=== PATIENT | male | born 1980 | race Hispanic/Latino ===

== ENCOUNTER 2017-04-25 21:51 | Emergency (ER) | payer OTHER ==
[2017-04-26] MEDS ORDERED: Haloperidol 5 MG TAB PO SCH (03:30)
[2017-04-26 04:23] LABS: #Monocytes 0.9 thou/uL (0.11-0.59); #Neutrophils 5.8 thou/uL (1.40-6.50); %Basophils 0.3 % (0.0-1.0); %Eosinophils 0.4 % (0.0-10.0); %Lymphocytes 22.6 % (21.0-51.0); %Monocytes 10.5 % (0.0-10.0); %Neutrophils 66.1 % (42.0-75.0); Hemoglobin 12.9 g/dL (14.0-18.0); Mean Corpuscular HGB CONC 35.9 g/dL (32.0-36.0); Mean Corpuscular Hemoglobin 31.3 pg (27.0-31.0); Mean Corpuscular Volume 87.3 fl (80.0-94.0); Mean Platelet Volume 5.8 fL (7.4-10.4); Platelet Count 347 thou/uL (130-400); RBC Distribution Width 11.1 % (11.5-14.5); Red Blood Cell (RBC) Count 4.11 mill/uL (4.70-6.10); White Blood Cell (WBC) Count 8.8 thou/uL (4.8-10.8)
[2017-04-26 04:36] LABS: Bilirubin Negative (Negative); Blood, Urine Negative (Negative); Clarity CLEAR (Clear); Glucose, Urine (Dipstick) Negative (Negative); Leukocyte Negative (Negative); Nitrite Negative (Negative); Protein, Urine (Dipstick) Negative (Neg-Trace); Specific Gravity, Urine 1.004 (1.002-1.036); Urobilinogen 0.2 mg/dL (0.2-1.0)
[2017-04-26 04:43] LABS: Amphetamine Not Detected (NotDetected); Barbiturates Screen Not Detected (NotDetected); Benzodiazepine Screen Not Detected (NotDetected); Cocaine Metabolite Screen Not Detected (NotDetected); Medtox Control Line Valid? VALID (VALID); Medtox Reader # READER 4; Methadone Not Detected (NotDetected); Methamphetamine Not Detected (NotDetected); Opiate Screen Not Detected (NotDetected); Oxycodone Screen Not Detected (NotDetected); Phencyclidine (PCP) Not Detected (NotDetected); THC/Cannabinoid Screen Not Detected (NotDetected); Tricyclic Screen Not Detected (NotDetected)
[2017-04-26 04:54] LABS: ALT (SGPT) 40 U/L (8-55); AST (SGOT) 41 U/L (5-34); Acetaminophen Less than 6.0 mcg/mL (10.0-30.0); Albumin 4.3 g/dL (3.5-5.0); Alcohol Less than 10 mg/dL (Less than 10); Alkaline Phosphatase 59 U/L (40-150); Anion Gap 12 mmol/L (10-20); BUN (Urea Nitrogen) 4 mg/dL (8.9-20.6); Bilirubin, Total 0.8 mg/dL (0.2-1.2); Calc. Creatinine Clearance 0 mL/min (70-130); Calcium 9.6 mg/dL (7.8-10.44); Carbon Dioxide 26 mmol/L (22-29); Chloride 98 mmol/L (98-107); Estimated GFR-MDRD Greater than 90; Globulin 2.4 g/dL (2.4-3.5); Glucose 103 mg/dL (70-105); Potassium 3.4 mmol/L (3.5-5.1); Protein, Total 6.7 g/dL (6.0-8.3); Salicylate Less than 8.0 mg/dL (15.0-30.0); Sodium 133 mmol/L (136-145)
--- NOTE | 2017-05-13 17:49 | EKG ---
Test Reason : PSYCH EVAL Blood Pressure : / mmHG Vent. Rate : 117 BPM Atrial Rate : 117 BPM P-R Int : 140 ms QRS Dur : 090 ms QT Int : 320 ms P-R-T Axes : 049 018 024 degrees QTc Int : 446 ms Sinus tachycardia Otherwise normal ECG Confirmed by HAKEEM KONG D.O. ([id number]), makeup editor GUY HERNANDEZ ([id number]) on 05/13/2017 5:47:59 PM Referred By: LIZ KONG Confirmed By:HAKEEM KONG D.O.
== END 2017-04-26 06:46 | disposition home or self-care (01) ==
LOC: ERS 21:51
DX: F31.9 Bipolar disorder, unspecified (principal); I10 Essential (primary) hypertension; E78.5 Hyperlipidemia, unspecified; Z79.899 Other long term (current) drug therapy
CPT/HCPCS: 36415; 80053; 80306; 80307; 81003; 84443; 85025; 93005

== ENCOUNTER 2017-04-30 15:55 | Observation (INO) | payer OTHER ==
[2017-04-30 16:29] LABS: Bilirubin Negative (Negative); Blood, Urine Negative (Negative); Clarity CLEAR (Clear); Glucose, Urine (Dipstick) Negative (Negative); Leukocyte Negative (Negative); Nitrite Negative (Negative); Protein, Urine (Dipstick) Negative (Neg-Trace); Specific Gravity, Urine 1.004 (1.002-1.036); Urobilinogen 0.2 mg/dL (0.2-1.0); pH, Urine 6.5 (5.0-9.0)
[2017-04-30 16:32] LABS: #Eosinphils 0.1 thou/uL (0.0-0.7); #Monocytes 1.1 thou/uL (0.11-0.59); #Neutrophils 10.4 thou/uL (1.40-6.50); %Basophils 0.3 % (0.0-1.0); %Eosinophils 0.6 % (0.0-10.0); %Lymphocytes 14.9 % (21.0-51.0); %Monocytes 7.7 % (0.0-10.0); %Neutrophils 76.5 % (42.0-75.0); Hemoglobin 12.9 g/dL (14.0-18.0); Mean Corpuscular HGB CONC 35.3 g/dL (32.0-36.0); Mean Corpuscular Hemoglobin 31.1 pg (27.0-31.0); Mean Platelet Volume 6.1 fL (7.4-10.4); Platelet Count 280 thou/uL (130-400); RBC Distribution Width 11.4 % (11.5-14.5); Red Blood Cell (RBC) Count 4.16 mill/uL (4.70-6.10); White Blood Cell (WBC) Count 13.6 thou/uL (4.8-10.8)
[2017-04-30 16:35] LABS: Amphetamine Not Detected (NotDetected); Barbiturates Screen Not Detected (NotDetected); Benzodiazepine Screen Not Detected (NotDetected); Cocaine Metabolite Screen Not Detected (NotDetected); Medtox Control Line Valid? VALID (VALID); Medtox Reader # READER 4; Methadone Not Detected (NotDetected); Methamphetamine Not Detected (NotDetected); Opiate Screen Not Detected (NotDetected); Oxycodone Screen Not Detected (NotDetected); Phencyclidine (PCP) Not Detected (NotDetected); THC/Cannabinoid Screen Not Detected (NotDetected); Tricyclic Screen Not Detected (NotDetected)
[2017-04-30 16:55] LABS: Acetaminophen Less than 6.0 mcg/mL (10.0-30.0); Alcohol Less than 10 mg/dL (Less than 10); Salicylate Less than 8.0 mg/dL (15.0-30.0)
[2017-04-30 16:56] LABS: ALT (SGPT) 47 U/L (8-55); AST (SGOT) 37 U/L (5-34); Albumin 4.2 g/dL (3.5-5.0); Alkaline Phosphatase 60 U/L (40-150); Anion Gap 16 mmol/L (10-20); BUN (Urea Nitrogen) 5 mg/dL (8.9-20.6); Bilirubin, Total 0.8 mg/dL (0.2-1.2); Calc. Creatinine Clearance 0 mL/min (70-130); Calcium 8.9 mg/dL (7.8-10.44); Carbon Dioxide 21 mmol/L (22-29); Chloride 92 mmol/L (98-107); Estimated GFR-MDRD Greater than 90; Globulin 2.6 g/dL (2.4-3.5); Glucose 97 mg/dL (70-105); Protein, Total 6.8 g/dL (6.0-8.3); Sodium 126 mmol/L (136-145)
[2017-04-30 17:04] LABS: Potassium 2.8 mmol/L (3.5-5.1)
[2017-04-30] MEDS ORDERED: Potassium Chloride 20 MEQ TAB ONE (17:07)
[2017-04-30] MEDS ORDERED: Metoprolol Tartrate 5 MG/5 ML VIAL IVP PRN (18:49)
[2017-04-30] MEDS ORDERED: Ziprasidone 20 MG VIAL IM PRN (18:50)
[2017-04-30] MEDS ORDERED: Sterile Water 10 ML VIAL FS PRN (18:55)
--- NOTE | 2017-04-30 19:34 | RAD ---
CHEST ONE VIEW: History: Emergency exam. Comparison: 03-17-05 FINDINGS: Lungs are hypoinflated. No focal airspace consolidation, pneumothorax, or effusion. Cardiomediastinal silhouette and mediastinal contours are normal for technique. IMPRESSION: No intrathoracic abnormality. POS: [facility]
--- NOTE | 2017-04-30 20:17 | HP ---
CHIEF COMPLAINT: Altered mental status. HISTORY OF PRESENT ILLNESS: This is a 36-year-old young white male with a known history of recurrent admissions to the hospital for hyponatremia. The patient was in his usual state of health until this morning at around 11:00 a.m. His mother call ed her that the patient was confused and was switching all the lights on and off and was wand ering around the abreu. This patient had similar symptoms whenever his sodium levels goes down and rae s been drinking water out of the tap. He usually does this whenever his psychiatric condition comes on. The patient is on Abilify and lamotrigine for his psychiatric problems. He came to the ER and w as noted to have a sodium level of 126 with a potassium of 2.8. He is pretty confused and unable to get any history at this time and most of the history is obtained from his dad. The patient sees [facility] as a psychiatry and do not have any specific psychiatrist. The patient was noted to have a severe t achycardia in the 140s, but there was no evidence of any swelling of his lower extremities and there is no hypoxia to see if this was related to the pulmonary embolism. He denied having any chest pain, no nausea, no vomiting. The patient was actually trying to get up from the bed and falling back. H e denied having any symptoms of agitation. There is no evidence of any aggressive behavior from the patient, but he does have manic symptoms of hypervigilance. PAST MEDICAL HISTORY: Significant for bipolar disorder. PAST SURGICAL HISTORY: None. SOCIAL HISTORY: He lives with his mother and is a nonsmoker. No history of alcohol. No history of illicit drug use. FAMILY HISTORY: Unknown at this time. MEDICATIONS: 1. Lisinopril 5 mg daily. 2. Abilify 10 mg p.o. at bedtime. 3. Cholecalciferol 2000 units p.o. daily. 4. Lamotrigine 100 mg p.o. at bedtime. ALLERGIES: No known drug allergies. REVIEW OF SYSTEMS: Unable to obtain any review of systems at this time. PHYSICAL EXAMINATION: VITAL SIGNS: Blood pressures are 143/88, heart rate is 140, respiratory rate is 18 and saturations a re 98% on room air. GENERAL: The patient is moderately built and moderately nourished. He does not appear to be in any acute distress at this time, alert and disoriented. HEENT: Atraumatic and normocephalic. PERRLA. Extraocular movements were intact. Oral mucosa is pi nk and moist. CARDIOVASCULAR: S1 and S2 normal. No murmurs, rubs or gallops. LUNGS: Bilateral air entry was equal. No wheezing, no crackles. ABDOMEN: Soft, distended and nontender. No guarding, no rebound tenderness. Bowel sounds normal. MUSCULOSKELETAL: No calf tenderness. No pedal edema. No joint tenderness, no joint swelling. SKIN: No cyanosis, no erythema, no rash, no pallor. CENTRAL NERVOUS SYSTEM: Could not be done as the patient is not following any commands and has compl etely altered. NECK: No thyromegaly. No JVD was noted. LYMPHADENOPATHY: No evidence of lymph nodes were noted. PSYCHIATRIC: Patient has signs of estrellita with hypervigilance, but no agitation or no violent behavior at this time. LABORATORY DATA: WBC is 13.6, hemoglobin is 12.9, hematocrit is 36.6, platelets are 280 and neutroph ils 76.5. Sodium is 126, potassium is 2.8, chloride is 98, BUN is 5, creatinine is 0.81. AST is 37. UA was ne gative for any urinary tract infection. Urine toxicology was negative. IMAGING DATA: Chest x-ray was done showing no evidence of any acute infiltrates were noted. ASSESSMENT: 1. Acute hyponatremia. 2. Acute psychogenic polydipsia. 3. Acute hypokalemia. 4. History of bipolar disorder, poorly controlled. 5. Sinus tachycardia. 6. Uncontrolled hypertension. PLAN: 1. Plan is to admit this patient and correct his hyponatremia as the patient could develop cerebral edema. He has low sodium levels. At this time, we will check the urine sodium and urine osmolality to rule out any evidence of syndrome of inappropriate antidiuretic hormone secretion, but clearly fro m his history, it is evident that the patient has a psychogenic polydipsia secondary to poor control of his psychiatric disorder. Patient has been drinking water out of the tap. We will do a free wate r restriction for 750 mL in 24 hours. 2. We will start the patient on normal saline at 75 mL an hour and we will start the patient on Las ix at 40 mg IV b.i.d. as the patient has a clear evidence of volume overload with free water volume o verload. The Lasix is to get the free water out. We will supplement potassium of 20 mg p.o. b.i.d. as long as the patient is on the Lasix. 3. We will hold off on the lisinopril at this time as this has also potential to cause hyponatremia. 4. Patient has severe sinus tachycardia. The patient did not have any evidence of pulmonary embolis m, but will do a D-dimer as a pretest probability is very less for a pulmonary embolism. 5. We will treat the sinus tachycardia with metoprolol 5 mg IV q.6 hours p.r.n. for heart rate more than 120. 6. Hypertension is poorly controlled, likely from his manic episode. We will control his hypertensi on with hydralazine 10 mg IV q.6 hours p.r.n. 7. Poorly controlled bipolar disorder. We will do a Geodon as needed for any agitation, but otherwi se we will restart the patient's home medications. The patient needs to be followed up with [facility] and needs to be admitted inpatient once the patient is medically cleared. 8. Deep venous thrombosis prophylaxis, Lovenox. I spent 70 minutes with this patient.
[2017-04-30] MEDS ORDERED: Metoprolol Tartrate 5 MG/5 ML VIAL ONE (20:45)
[2017-04-30] MEDS ORDERED: lamoTRIgine 100 MG TAB PO SCH (21:00)
[2017-04-30] MEDS ORDERED: Aripiprazole 10 MG TAB PO SCH (21:00)
[2017-04-30] MEDS ORDERED: Ondansetron ODT 4 MG TAB SL PRN (21:47)
[2017-04-30] MEDS ORDERED: Acetaminophen 325 MG TAB PO PRN (21:47)
[2017-04-30] MEDS ORDERED: Ondansetron HCl/PF 4 MG/2 ML Vial IVP PRN ×2 (21:47→21:49)
[2017-04-30] MEDS ORDERED: HYDROcodone/Acetaminophen 5/325 mg Tablet PO PRN (21:49)
[2017-04-30] MEDS ORDERED: Famotidine/PF 20 mg/2ml Vial SLOW IVP SCH (22:00)
[2017-04-30] MEDS ORDERED: Docusate 100 MG CAP PO SCH (22:00)
[2017-04-30] MEDS: Sodium Chloride 0.9% 1,000 ML IV SCH (22:06)
[2017-05-01 00:12] VITALS: BMI 35.4
[2017-05-01 05:17] LABS: #Eosinphils 0.1 thou/uL (0.0-0.7); #Lymphocytes 1.8 thou/uL (1.20-3.40); #Neutrophils 5.2 thou/uL (1.40-6.50); %Basophils 0.6 % (0.0-1.0); %Eosinophils 0.8 % (0.0-10.0); %Lymphocytes 22.6 % (21.0-51.0); %Monocytes 11.8 % (0.0-10.0); %Neutrophils 64.2 % (42.0-75.0); Hemoglobin 13.3 g/dL (14.0-18.0); Mean Corpuscular HGB CONC 36.2 g/dL (32.0-36.0); Mean Corpuscular Hemoglobin 32.2 pg (27.0-31.0); Mean Corpuscular Volume 88.9 fl (80.0-94.0); Mean Platelet Volume 6.5 fL (7.4-10.4); Platelet Count 297 thou/uL (130-400); RBC Distribution Width 11.6 % (11.5-14.5); Red Blood Cell (RBC) Count 4.13 mill/uL (4.70-6.10); White Blood Cell (WBC) Count 8.1 thou/uL (4.8-10.8)
[2017-05-01 05:37] LABS: Anion Gap 10 mmol/L (10-20); BUN (Urea Nitrogen) 4 mg/dL (8.9-20.6); Calc. Creatinine Clearance 162 mL/min (70-130); Calcium 9.6 mg/dL (7.8-10.44); Carbon Dioxide 24 mmol/L (22-29); Chloride 109 mmol/L (98-107); Estimated GFR-MDRD Greater than 90; Glucose 93 mg/dL (70-105); Potassium 4.4 mmol/L (3.5-5.1); Sodium 139 mmol/L (136-145)
[2017-05-01] MEDS ORDERED: Furosemide 40 MG/4 ML VIAL SLOW IVP SCH (06:00)
[2017-05-01] MEDS ORDERED: Famotidine/PF 20 mg/2ml Vial SLOW IVP SCH (09:00)
[2017-05-01] MEDS ORDERED: Docusate 100 MG CAP PO SCH (09:00)
[2017-05-01] MEDS ORDERED: Enoxaparin Sodium 40 MG/0.4 ML SYRINGE SC SCH (09:00)
[2017-05-01] MEDS: Potassium Chloride 20 MEQ TAB PO SCH ×2 (09:24→17:30)
[2017-05-01] MEDS: Sodium Chloride 0.9% 1,000 ML IV SCH (09:25)
--- NOTE | 2017-05-01 15:33 | DIS ---
DATE OF ADMISSION: 04/30/2017 DATE OF DISCHARGE: 05/01/2017 ADMITTING DIAGNOSIS: Acute metabolic encephalopathy. DISCHARGE DIAGNOSIS: Acute metabolic encephalopathy. SECONDARY DIAGNOSES: 1. Acute hyponatremia. 2. Acute hypokalemia. 3. Acute psychogenic polydipsia. 4. History of bipolar disorder. HISTORY OF PRESENT ILLNESS AND HOSPITAL COURSE: In brief, this is a 36-year-old young white male wit h a known history of recurrent admissions for hyponatremia secondary to poorly controlled bipolar dis order, on antipsychotic medications. The patient has been developing psychogenic polydipsia and drin presley cool water from the tap. The patient was in his usual state of health today. At 11:00 a.m., th e mother noted that the patient was confused and was switching the lights on and off and was wanderin g in the halls. So, she called the EMS and the patient was taken to the ER and was noted to have a l ow sodium of 126 and low potassium of 2.8. The patient was completely confused and disoriented. Gena suárez's CT head was done and was negative and drug screen was negative. Discussed with the patient's dad that the patient would probably need to be treated at a psych facility for his bipolar disorder. The patient was admitted and started on normal saline at 75 mL an hour and also started on Lasix to get the free water out. The following morning, the patient's labs improved. His orientation has com pletely changed. He is completely back to normal and [facility] did evaluate him and they thought the fareed ent is not appropriate for inpatient psych. So, they gave an outpatient psych appointment to go over his psych medications. Patient is discharged home in stable condition after he is medically cleared . PHYSICAL EXAMINATION: VITAL SIGNS: Blood pressure is 118/74, heart rate is 80, respiratory rate 17, saturation 96%. GENERAL: The patient is moderately built and moderately nourished, does not appear to be in any acut e distress. He is alert and oriented x3. HEENT: Atraumatic, normocephalic. CARDIOVASCULAR: S1, S2 normal. No murmurs, no rubs, no gallops. LUNGS: Bilateral air entry was equal. No wheezing, no crackles. ABDOMEN: Soft, nontender, no guarding, no rebound tenderness. HOME MEDICATIONS: Lisinopril 5 mg p.o. daily, aripiprazole 10 mg p.o. at bedtime, and lamotrigine 10 0 mg p.o. at bedtime. DISCHARGE INSTRUCTIONS: Continue activity as tolerated. Advised to follow up with psychiatry outpat ient as suggested by [facility]. Advised to avoid drinking excess free water more than 1500 mL a day. DIET: Continue with the general diet. The patient is discharged home. I spent 30 minutes with this patient.
[2017-05-01 16:04] VITALS: TEMP 98.3
[2017-05-01 18:40] VITALS: BP 140/71
[2017-05-02] MEDS ORDERED: Lisinopril 5 MG TAB PO SCH (09:00)
== END 2017-05-01 18:41 | disposition home or self-care (01) ==
LOC: ERS 15:55 → 2NO 21:48
PROVIDERS: ADMIT Family Medicine; ATTEND Family Medicine
DX: G93.41 Metabolic encephalopathy (principal); E87.1 Hypo-osmolality and hyponatremia; E87.6 Hypokalemia; F31.9 Bipolar disorder, unspecified; I10 Essential (primary) hypertension; E78.5 Hyperlipidemia, unspecified; E78.00 Pure hypercholesterolemia, unspecified; F45.8 Other somatoform disorders; R63.1 Polydipsia; R73.03 Prediabetes; R00.0 Tachycardia, unspecified; Z79.899 Other long term (current) drug therapy; Z90.49 Acquired absence of other specified parts of digestive tract
CPT/HCPCS: 36415; 71045; 80048; 80053; 80306; 80307; 81003; 85025; 85379; 93005; 94760; 96361; 96372; 96374; 96375; 96376; A4216; G0378; J1650; J1940; S0028

== ENCOUNTER 2017-08-17 00:12 | Emergency (ER) | payer OTHER ==
[2017-08-17] MEDS ORDERED: Lorazepam 2 MG/ML VIAL ONE (00:30)
[2017-08-17] MEDS ORDERED: Haloperidol Lactate 5 MG/ML VIAL ONE (00:30)
== END 2017-08-17 02:18 | disposition home or self-care (01) ==
LOC: ERS 00:12
DX: F41.9 Anxiety disorder, unspecified (principal); E78.5 Hyperlipidemia, unspecified; I10 Essential (primary) hypertension; F31.9 Bipolar disorder, unspecified; Z79.899 Other long term (current) drug therapy
CPT/HCPCS: 96372; J1630; J2060

== ENCOUNTER 2017-09-04 17:00 | Emergency (ER) | payer OTHER ==
[2017-09-04] MEDS ORDERED: diphenhydrAMINE 25 MG CAP ONE (18:24)
[2017-09-04] MEDS ORDERED: Haloperidol Lactate 5 MG/ML VIAL ONE (18:24)
== END 2017-09-04 19:03 | disposition home or self-care (01) ==
LOC: ERS 17:00
DX: F41.9 Anxiety disorder, unspecified (principal); F30.9 Manic episode, unspecified; E87.5 Hyperkalemia; I10 Essential (primary) hypertension; R73.03 Prediabetes; F31.9 Bipolar disorder, unspecified; F20.9 Schizophrenia, unspecified
CPT/HCPCS: 96372; J1630

== ENCOUNTER 2017-09-09 21:52 | Inpatient (IN) | payer OTHER ==
[2017-09-09 23:39] LABS: #Eosinphils 0.1 thou/uL (0.0-0.7); #Monocytes 1.2 thou/uL (0.11-0.59); #Neutrophils 10.5 thou/uL (1.40-6.50); %Basophils 0.1 % (0.0-1.0); %Lymphocytes 14.7 % (21.0-51.0); %Monocytes 8.9 % (0.0-10.0); %Neutrophils 75.3 % (42.0-75.0); Hemoglobin 12.3 g/dL (14.0-18.0); Mean Corpuscular HGB CONC 36.3 g/dL (32.0-36.0); Mean Corpuscular Volume 85.4 fl (80.0-94.0); Mean Platelet Volume 6.4 fL (7.4-10.4); Platelet Count 235 thou/uL (130-400); RBC Distribution Width 10.7 % (11.5-14.5); Red Blood Cell (RBC) Count 3.98 mill/uL (4.70-6.10); White Blood Cell (WBC) Count 13.9 thou/uL (4.8-10.8)
[2017-09-09 23:52] LABS: Acetaminophen Less than 6.0 mcg/mL (10.0-30.0); Alcohol Less than 10 mg/dL (Less than 10); CK (CPK) 2739 U/L (30-200); Salicylate Less than 8.0 mg/dL (15.0-30.0)
[2017-09-09 23:54] LABS: ALT (SGPT) 33 U/L (8-55); AST (SGOT) 51 U/L (5-34); Albumin 4.1 g/dL (3.5-5.0); Alkaline Phosphatase 58 U/L (40-150); Anion Gap 15 mmol/L (10-20); BUN (Urea Nitrogen) 4 mg/dL (8.9-20.6); Bilirubin, Total 1.2 mg/dL (0.2-1.2); Calc. Creatinine Clearance 0 mL/min (70-130); Calcium 8.7 mg/dL (7.8-10.44); Carbon Dioxide 25 mmol/L (22-29); Chloride 86 mmol/L (98-107); Estimated GFR-MDRD Greater than 90; Globulin 2.4 g/dL (2.4-3.5); Glucose 152 mg/dL (70-105); Protein, Total 6.5 g/dL (6.0-8.3); Sodium 123 mmol/L (136-145)
[2017-09-10 00:16] LABS: Potassium 2.5 mmol/L (3.5-5.1)
[2017-09-10] MEDS ORDERED: Potassium Chloride 20 MEQ TAB ONE (01:24)
[2017-09-10] MEDS ORDERED: Ziprasidone 20 MG VIAL ONE (01:24)
[2017-09-10] MEDS ORDERED: Lorazepam 1 MG TAB ONE (01:24)
[2017-09-10] MEDS ORDERED: Water For Injection,Sterile 20 ML ONE (01:25)
[2017-09-10 02:26] LABS: Bilirubin Negative (Negative); Blood, Urine Negative (Negative); Clarity CLEAR (Clear); Glucose, Urine (Dipstick) Negative (Negative); Leukocyte Negative (Negative); Nitrite Negative (Negative); Protein, Urine (Dipstick) Negative (Neg-Trace); Specific Gravity, Urine 1.002 (1.002-1.036); Urobilinogen 0.2 mg/dL (0.2-1.0); pH, Urine 7.5 (5.0-9.0)
[2017-09-10 04:05] LABS: Amphetamine Not Detected (NotDetected); Barbiturates Screen Not Detected (NotDetected); Benzodiazepine Screen Not Detected (NotDetected); Cocaine Metabolite Screen Not Detected (NotDetected); Medtox Control Line Valid? VALID (VALID); Medtox Reader # READER 1; Methadone Not Detected (NotDetected); Methamphetamine Not Detected (NotDetected); Opiate Screen Not Detected (NotDetected); Oxycodone Screen Not Detected (NotDetected); Phencyclidine (PCP) Not Detected (NotDetected); THC/Cannabinoid Screen Not Detected (NotDetected); Tricyclic Screen Not Detected (NotDetected)
[2017-09-10 04:06] VITALS: BMI 35.9
[2017-09-10 06:18] LABS: Anion Gap 12 mmol/L (10-20); BUN (Urea Nitrogen) Less than 4 mg/dL (8.9-20.6); CK (CPK) 2977 U/L (30-200); Calc. Creatinine Clearance 204 mL/min (70-130); Calcium 8.8 mg/dL (7.8-10.44); Carbon Dioxide 25 mmol/L (22-29); Chloride 96 mmol/L (98-107); Estimated GFR-MDRD Greater than 90; Glucose 80 mg/dL (70-105); Sodium 130 mmol/L (136-145)
[2017-09-10] MEDS ORDERED: Acetaminophen 325 MG TAB PO PRN (07:26)
[2017-09-10] MEDS: Potassium Chloride 20 MEQ TAB PO SCH ×2 (08:29→16:24)
[2017-09-10] MEDS: Divalproex Sodium DR 500 MG TAB PO SCH ×2 (08:29→20:30)
[2017-09-10] MEDS: Atorvastatin Calcium 20 MG TAB PO SCH (08:29)
[2017-09-10] MEDS: Magnesium Oxide 400 MG TAB PO SCH ×2 (10:05→20:30)
[2017-09-10] MEDS ORDERED: Sodium Chloride 0.9% 1,000 ML IV SCH (13:15)
[2017-09-10] MEDS: Sodium Chloride 0.9% 1,000 ML IV SCH (16:26)
--- NOTE | 2017-09-10 22:34 | HP ---
PRIMARY CARE PHYSICIAN: Dr. Mc. PRESENTING COMPLAINT: Anxiety. HISTORY OF PRESENT ILLNESS: Mr. Camden Mancilla presented to the emergency room today with reports of agitation and bizarre behavior according to family. He has been constantly drinking a lot of water and eating. His father reports that he has a history of schizophrenia bipolar disorder, as well as anxiety. Symptoms started yesterday. At the emergency room, he was found to be hyponatremic and hyperkalemic with elevated CPK. He has had a previous presentation for similar presentation. He was given a diagnosis of psychogenic polydipsia rhabdomyolysis, hyponatremia and hyperkalemia and he was admitted for further care. PAST MEDICAL HISTORY: As stated in the HPI. PAST SURGICAL HISTORY: None. FAMILY HISTORY: Reviewed and noncontributory. SOCIAL HISTORY: Denies drinking alcohol, smoking cigarettes or use of illicit drugs. HOME MEDICATIONS: Lisinopril/hydrochlorothiazide 20 mg/12.5 mg tablet 1 daily, paliperidone palmitate 150 mg subcutaneously monthly, atorvastatin 20 mg daily, divalproex sodium 500 mg b.i.d. ALLERGIES: No known. CODE STATUS: FULL. REVIEW OF SYSTEMS: All systems reviewed and negative, except as stated in HPI. PHYSICAL EXAMINATION: VITAL SIGNS: Temperature 98 degree Fahrenheit, pulse rate 70, respiratory rate 16, oxygen saturation 94% on room air, blood pressure 102/53. GENERAL: Not in acute distress, lying comfortably in bed. HEENT: Normocephalic, atraumatic. Not pale, anicteric. Moist mucous membranes. PERRLA, EOMI. NECK: Supple, full range of movement. RESPIRATORY: Vesicular breath sounds bilaterally. No wheezes, rales or rhonchi. CARDIOVASCULAR: S1, S2 only. Regular rate and rhythm. No murmurs, rubs or gallops. ABDOMEN: Soft, nontender, nondistended. Bowel sounds normoactive. No hepatosplenomegaly. EXTREMITIES: No edema. Moves all extremities spontaneously. NEUROLOGIC: Alert and well oriented to time, place or person. No focal deficits. SKIN: Warm, dry, well-perfused. No rashes or lesions. PSYCHIATRIC: Normal mood and affect. Denies SI or HI. LABORATORY DATA: Sodium 123, potassium 2.5, chloride 86, carbon dioxide 25, anion gap 15, BUN 4, creatinine 0.93, glucose 152, calcium 8.7. Hematology: WBC 13, hemoglobin 12.3, platelet count 235. IMAGING: None. ASSESSMENT: Psychogenic polydipsia, hyponatremia, hyperkalemia, rhabdomyolysis , bipolar disorder, schizophrenia, anxiety disorder, hypertension, hyperlipidemia. PLAN: The patient has been admitted for correction of his electrolytes. His sodium has improved since he has been in the hospital. We will continue to hydrate the patient and monitor his electrolytes. We will continue to replace electrolytes and monitor his vital signs. He will likely be suitable for discharge in the morning. We will also get a CPK in the morning. JOSEPH
[2017-09-11] MEDS: Sodium Chloride 0.9% 1,000 ML IV SCH ×2 (03:03→11:12)
[2017-09-11 05:27] LABS: Hemoglobin 12.7 g/dL (14.0-18.0); Mean Corpuscular HGB CONC 35.3 g/dL (32.0-36.0); Mean Corpuscular Hemoglobin 31.4 pg (27.0-31.0); Mean Platelet Volume 6.6 fL (7.4-10.4); Platelet Count 248 thou/uL (130-400); RBC Distribution Width 11.3 % (11.5-14.5); Red Blood Cell (RBC) Count 4.03 mill/uL (4.70-6.10); White Blood Cell (WBC) Count 8.9 thou/uL (4.8-10.8)
[2017-09-11 06:04] LABS: Anion Gap 12 mmol/L (10-20); BUN (Urea Nitrogen) 8 mg/dL (8.9-20.6); CK (CPK) 1640 U/L (30-200); Calc. Creatinine Clearance 168 mL/min (70-130); Calcium 8.8 mg/dL (7.8-10.44); Carbon Dioxide 23 mmol/L (22-29); Chloride 109 mmol/L (98-107); Estimated GFR-MDRD Greater than 90; Glucose 77 mg/dL (70-105); Potassium 4.4 mmol/L (3.5-5.1); Sodium 140 mmol/L (136-145)
[2017-09-11] MEDS: Potassium Chloride 20 MEQ TAB PO SCH (08:16)
[2017-09-11] MEDS: Atorvastatin Calcium 20 MG TAB PO SCH (08:16)
[2017-09-11] MEDS: Magnesium Oxide 400 MG TAB PO SCH (08:16)
[2017-09-11] MEDS: Divalproex Sodium DR 500 MG TAB PO SCH (08:16)
[2017-09-11 11:30] VITALS: BP 123/73; TEMP 97.5
--- NOTE | 2017-09-11 13:25 | DIS ---
DATE OF ADMISSION: 09/10/2017 DATE OF DISCHARGE: 09/11/2017 PRIMARY CARE PROVIDER: Dr. Mc. DISCHARGE DIAGNOSES: Psychogenic polydipsia, hyponatremia, hyperkalemia, rhabdomyolysis, bipolar dis order, schizophrenia, anxiety disorder, hypertension, and hyperlipidemia. HISTORY OF PRESENT ILLNESS/HOSPITAL COURSE: Mr. Laurent Hannah is a 36-year-old male with a history of schizophrenia, psychogenic polydipsia, hypertension, hyperlipidemia, who presented to the emergency room after his family complained of agitation and bizarre behavior. He had been constantly drinking a lot of water and was very disruptive at the house, resulting them bring him to the emergency room. At the emergency room, he was found to be hyponatremic, hyperkalemic with elevated CPK and diagnoses of psychogenic polydipsia with hyponatremia and rhabdomyolysis was made, and the patient was admitte d to the hospital for further care. He received his IV fluids and was then placed on fluid restricti on. His electrolytes were repleted. By day 2, he was completely alert and oriented. He had no comp laints. His electrolyte abnormalities have resolved and patient was deemed stable to be discharged. He was also reviewed by [facility], who plans to follow up with him in clinic. He had an appointment date d for 09/19/2017. He was not homicidal or suicidal and had no psychotic features. DISCHARGE MEDICATIONS: Magnesium oxide 400 mg b.i.d., potassium chloride 20 mEq daily, lisinopril/hy drochlorothiazide 20 mg/12.5 mg tablet daily, paliperidone palmitate 156 mg subcu monthly, atorvastat in calcium 20 mg daily, divalproex sodium 500 mg b.i.d. PHYSICAL EXAMINATION: He was examined on the day of discharge. VITAL SIGNS: Temperature 97.9 degrees Fahrenheit, pulse rate 88, respiratory rate 17, oxygen saturat ion 99% on room air, blood pressure 123/71. GENERAL: Not in acute distress. He was sitting comfortably in bed, eating breakfast. HEENT: Normocephalic, atraumatic. Not pale, anicteric. Moist mucous membranes. NECK: Supple, full range of movement. RESPIRATORY: Vesicular breath sounds bilaterally. No wheezes, rales, or rhonchi. CARDIOVASCULAR: S1 and S2 only, regular rate and rhythm. No murmurs, rubs, or gallops. ABDOMEN: Soft, nontender, nondistended. Bowel sounds normoactive. EXTREMITIES: No edema. NEUROLOGIC: Alert and well-oriented to time, place, and person. No deficits. SKIN: Warm, dry, and well perfused. No rashes or lesions. PSYCHIATRIC: Normal mood and affect. Denies SI or HI. LABORATORY DATA: WBC 8.9, hemoglobin 12.7, platelet count 248. Sodium 140, potassium 4.4, chloride 109, carbon dioxide 23, anion gap 12, BUN 8, creatinine 0.92, glucose 77, calcium 8.8. TSH 0.8231. CONSULTATIONS: None. PROCEDURES: None. CONSULTATIONS: MR. CONDITION AT DISCHARGE: Stable and improved. DIET: Low salt. CARE GOALS: To follow up with the primary care physician within 2 weeks of discharge. He has an sebastian ointment for [facility] followup on 09/20/2017. The patient was encouraged to keep this appointment. He w as also encouraged to limit the amount of water he drinks to prevent him presenting with the same. ACTIVITY: Resume as tolerated. DISCHARGE TIME: 65 minutes including chart review and documentation.
--- NOTE | 2017-09-11 14:15 | EKG ---
Test Reason : Blood Pressure : / mmHG Vent. Rate : 073 BPM Atrial Rate : 073 BPM P-R Int : 154 ms QRS Dur : 100 ms QT Int : 404 ms P-R-T Axes : 043 012 007 degrees QTc Int : 445 ms Normal sinus rhythm Normal ECG Confirmed by KAITLYNN TORIBIO ([id number]), editor publications GUY HERNANDEZ ([id number]) on 09/11/2017 2:15:34 PM Referred By: Confirmed By:KAITLYNN TORIBIO
== END 2017-09-11 12:20 | disposition home or self-care (01) | DRG 641 ==
LOC: ERS 21:52 → 2NO 09-10 03:29
PROVIDERS: ADMIT Internal Medicine; ATTEND Internal Medicine
DX: E87.1 Hypo-osmolality and hyponatremia (principal); M62.82 Rhabdomyolysis; R63.1 Polydipsia; F45.8 Other somatoform disorders; F20.9 Schizophrenia, unspecified; F31.9 Bipolar disorder, unspecified; R00.0 Tachycardia, unspecified; F41.9 Anxiety disorder, unspecified; E78.5 Hyperlipidemia, unspecified; I10 Essential (primary) hypertension; R73.03 Prediabetes; E87.6 Hypokalemia; Z79.899 Other long term (current) drug therapy
CPT/HCPCS: 36415; 80048; 80053; 80306; 80307; 81003; 82550; 83735; 84443; 85025; 85027; 93005; 94760; 96360; 96372; A4216; J3486

== ENCOUNTER 2017-09-14 17:18 | Emergency (ER) | payer OTHER ==
[2017-09-14] MEDS ORDERED: Lidocaine 4% Cream 5 GM TUBE w/ Tegaderm ONE (17:43)
[2017-09-14] MEDS ORDERED: Bacitracin Zinc 1 Packet ONE (18:25)
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
== END 2017-09-14 18:49 | disposition home or self-care (01) ==
LOC: ERS 17:18
DX: S01.01XA Laceration without foreign body of scalp, initial encounter (principal); E78.5 Hyperlipidemia, unspecified; I10 Essential (primary) hypertension; F31.9 Bipolar disorder, unspecified; R73.03 Prediabetes; Z79.899 Other long term (current) drug therapy; Y04.0XXA Assault by unarmed brawl or fight, initial encounter
CPT/HCPCS: 12002; 70450

== ENCOUNTER 2017-09-20 07:23 | Emergency (ER) | payer OTHER | END 2017-09-20 07:42 | disposition home or self-care (01) | LOC: ERS 07:23 | DX: S01.01XD Laceration without foreign body of scalp, subsequent encounter (principal); E78.5 Hyperlipidemia, unspecified; I10 Essential (primary) hypertension; F31.9 Bipolar disorder, unspecified ==

== ENCOUNTER 2017-09-21 16:43 | Emergency (ER) | payer OTHER | END 2017-09-21 18:33 | disposition home or self-care (01) | LOC: ERS 16:43 | DX: F41.9 Anxiety disorder, unspecified (principal); E78.5 Hyperlipidemia, unspecified; F31.9 Bipolar disorder, unspecified; I10 Essential (primary) hypertension; R73.03 Prediabetes | CPT/HCPCS: 99283 ==

== ENCOUNTER 2017-10-14 19:38 | Observation (INO) | payer OTHER ==
[2017-10-14 20:11] LABS: #Basophils 0.1 thou/uL (0.0-0.2); #Eosinphils 0.1 thou/uL (0.0-0.7); #Lymphocytes 2.9 thou/uL (1.20-3.40); #Monocytes 1.4 thou/uL (0.11-0.59); #Neutrophils 7.5 thou/uL (1.40-6.50); %Basophils 1.2 % (0.0-1.0); %Eosinophils 1.2 % (0.0-10.0); %Lymphocytes 24.1 % (21.0-51.0); %Monocytes 11.3 % (0.0-10.0); %Neutrophils 62.2 % (42.0-75.0); Hemoglobin 13.7 g/dL (14.0-18.0); Mean Corpuscular Hemoglobin 31.2 pg (27.0-31.0); Mean Corpuscular Volume 86.5 fL (78.0-98.0); Mean Platelet Volume 6.1 fL (7.4-10.4); Platelet Count 258 thou/uL (130-400); RBC Distribution Width 10.7 % (11.5-14.5); White Blood Cell (WBC) Count 12.1 thou/uL (4.8-10.8)
[2017-10-14 20:28] LABS: Acetaminophen Less than 6.0 mcg/mL (10.0-30.0); Alcohol Less than 10 mg/dL (Less than 10); Salicylate Less than 8.0 mg/dL (15.0-30.0)
[2017-10-14 20:34] LABS: ALT (SGPT) 25 U/L (8-55); AST (SGOT) 29 U/L (5-34); Albumin 4.6 g/dL (3.5-5.0); Alkaline Phosphatase 62 U/L (40-150); Anion Gap 16 mmol/L (10-20); BUN (Urea Nitrogen) 4 mg/dL (8.9-20.6); Bilirubin, Total 0.9 mg/dL (0.2-1.2); CK (CPK) 1191 U/L (30-200); Calc. Creatinine Clearance 0 mL/min (70-130); Calcium 8.9 mg/dL (7.8-10.44); Carbon Dioxide 21 mmol/L (22-29); Chloride 84 mmol/L (98-107); Estimated GFR-MDRD Greater than 90; Globulin 2.3 g/dL (2.4-3.5); Glucose 103 mg/dL (70-105); Protein, Total 6.9 g/dL (6.0-8.3)
[2017-10-14 20:37] LABS: CKMB 12.2 ng/mL (0-6.6)
[2017-10-14 20:38] LABS: Potassium 2.8 mmol/L (3.5-5.1); Sodium 118 mmol/L (136-145)
[2017-10-14 21:25] LABS: Bilirubin Negative (Negative); Blood, Urine Negative (Negative); Clarity CLEAR (Clear); Glucose, Urine (Dipstick) Negative (Negative); Leukocyte Negative (Negative); Nitrite Negative (Negative); Protein, Urine (Dipstick) Negative (Neg-Trace); Specific Gravity, Urine 1.002 (1.002-1.036); Urobilinogen 0.2 mg/dL (0.2-1.0)
[2017-10-14 21:29] LABS: Amphetamine Not Detected (NotDetected); Barbiturates Screen Not Detected (NotDetected); Benzodiazepine Screen Not Detected (NotDetected); Cocaine Metabolite Screen Not Detected (NotDetected); Medtox Control Line Valid? VALID (VALID); Medtox Reader # READER 4; Methadone Not Detected (NotDetected); Methamphetamine Not Detected (NotDetected); Opiate Screen Not Detected (NotDetected); Oxycodone Screen Not Detected (NotDetected); Phencyclidine (PCP) Not Detected (NotDetected); THC/Cannabinoid Screen Not Detected (NotDetected); Tricyclic Screen Not Detected (NotDetected)
[2017-10-14] MEDS ORDERED: Potassium Chloride 20 MEQ TAB ONE (21:53)
[2017-10-15 00:44] VITALS: BMI 36.0
[2017-10-15] MEDS ORDERED: Ondansetron HCl/PF 4 MG/2 ML Vial IVP PRN (00:46)
[2017-10-15] MEDS ORDERED: Acetaminophen 325 MG TAB PO PRN (00:46)
[2017-10-15] MEDS ORDERED: Ondansetron ODT 4 MG TAB SL PRN (00:46)
[2017-10-15] MEDS ORDERED: Bisacodyl 5 MG TAB PO PRN (05:33)
[2017-10-15] MEDS ORDERED: Bisacodyl 10 MG SUPP PR PRN (05:33)
[2017-10-15] MEDS ORDERED: Senokot 8.6 MG TAB PO PRN (05:33)
[2017-10-15 06:09] LABS: Anion Gap 13 mmol/L (10-20); BUN (Urea Nitrogen) Less than 4 mg/dL (8.9-20.6); Calc. Creatinine Clearance 177 mL/min (70-130); Carbon Dioxide 27 mmol/L (22-29); Chloride 95 mmol/L (98-107); Estimated GFR-MDRD Greater than 90; Glucose 94 mg/dL (70-105); Potassium 3.7 mmol/L (3.5-5.1); Sodium 131 mmol/L (136-145)
[2017-10-15] MEDS: Potassium Chloride 20 MEQ TAB PO SCH (08:43)
[2017-10-15] MEDS: Enoxaparin Sodium 30 MG/0.3 ML SYRINGE SC SCH (08:43)
[2017-10-15 11:52] LABS: Anion Gap 10 mmol/L (10-20); BUN (Urea Nitrogen) 4 mg/dL (8.9-20.6); Calc. Creatinine Clearance 181 mL/min (70-130); Carbon Dioxide 26 mmol/L (22-29); Chloride 103 mmol/L (98-107); Estimated GFR-MDRD Greater than 90; Glucose 80 mg/dL (70-105); Potassium 4.4 mmol/L (3.5-5.1); Sodium 135 mmol/L (136-145)
--- NOTE | 2017-10-15 13:46 | HP ---
PRIMARY CARE PHYSICIAN: Dr. Mc. CHIEF COMPLAINT: Mental status change. HISTORY OF PRESENT ILLNESS: This is a 37-year-old male with a known history of psychogenic polydipsi a, bipolar disorder, who was brought in for mental status changes. It is not completely clear to me exactly what type of mental status change was observed, as this is not noted in his ER records and th e patient himself is a poor historian. At the time of my evaluation, the patient is able to answer questions. However, he does not provide much of a history of present illness. States that he just "knew he had to come in," but was unable t o further elicit why he felt that he needed to come in. Per ER records, it appears that he has a his tory of becoming upset with his father, so he goes to his mother's house and drinks a fair amount of water and then is brought in with hyponatremia. He does have a known history of psychogenic polydips ia. REVIEW OF SYSTEMS: As per HPI. Constitutional: The patient denies any fevers, chills, weight lloyd es. HEENT: Denies any new headaches, vision changes, or dizziness. Cardiovascular: Denies any jessica st pain or chest pressure, left-sided arm numbness or tingling or episodes of diaphoresis. Respirato ry: Denies any shortness of breath, recent upper respiratory infection, cough, or congestion. Gastr ointestinal: Denies any nausea, vomiting, abdominal pain, diarrhea, or constipation. Genitourinary: Denies any dysuria. Musculoskeletal: Denies any new myalgias or arthralgias. The remainder of the review of systems, otherwise, negative. PAST MEDICAL HISTORY: The patient is an unfortunately poor historian, so his past medical history is obtained from prior records, which indicates hyperlipidemia, hypertension, possible diabetes, psycho genic polydipsia, and status post tonsillectomy. HOME MEDICATIONS: The patient denies any changes to his medications in the last month. Denies any c hanges in supplements, vitamins, or [id number] medications. His unconfirmed medication list in cludes potassium 20 mEq p.o. daily, paliperidone palmitate 156 mg subcu monthly, magnesium oxide 400 mg p.o. b.i.d., lisinopril/hydrochlorothiazide 20/12.5 one tab p.o. daily, Depakote DR 500 mg p.o. b. i.d., atorvastatin 20 mg p.o. daily. The patient is a poor historian, so these medications will need to be reconciled with either his [facility] care provider or his pharmacy. ALLERGIES: No known drug allergies. SOCIAL HISTORY: Predominantly lives with his father. No tobacco, no illicit drugs, no alcohol use. FAMILY HISTORY: No known family history of recurrent hyponatremia or polydipsia in any other family members. PHYSICAL EXAMINATION: GENERAL: The patient is awake, alert, conversant, in no acute distress, lying in the hospital bed. A sitter is accompanying him at bedside. HEENT: Normocephalic, atraumatic. Equal ocular motions are intact. Moist mucous membranes. CARDIOVASCULAR: S1 and S2. No murmurs, rubs, or gallops. Pulses 2+ bilateral upper extremities, no pitting pedal edema. RESPIRATORY: Reasonable air movement. No conversational dyspnea. No wheezes, rales, or rhonchi. G rossly clear to auscultation bilaterally. ABDOMEN: Positive bowel sounds, soft, nontender to palpation. MUSCULOSKELETAL: Moving all 4 extremities equally. LABORATORY DATA AND IMAGING: WBC 12.1, hemoglobin 13.7, hematocrit 38.1, platelets 258. Sodium 118, potassium 2.8, chloride 84, BUN 4, creatinine 0.87, glucose 115, calcium 8.9, total bilirubin 0.9, A ST 29, ALT 25, alkaline phosphatase 62. Creatine kinase 1191, CK-MB 12.2, troponin 0.01. Total prot ein 6.9, albumin 4.6. UA is bland. UDS is negative. ASSESSMENT AND PLAN: A 37-year-old male with a known history of psychogenic polydipsia, who presents with altered mental status. 1. Altered mental status with a sodium of 118. Serial BMP. I appreciate Nephrology consultation. Patient is currently on a fluid restriction with close monitoring of mental status and sodium levels. 2. Hyponatremia. Please see management above. 3. Hypokalemia. The patient appears to be on potassium supplementation on an outpatient basis. I s uspect that this is not completely new for the patient. Recheck serum potassium is persistently low, will require repletion. I have discussed this with the patient. 4. Psychiatric history. Currently, also on Depakote. We will check a Depakote level. 5. Diet: As tolerated with fluid restriction. 6. Activity as tolerated. 7. Deep vein thrombosis prophylaxis with enoxaparin. Thank you for asking me to care for the patient. Questions or concerns, contact me at [facility].
--- NOTE | 2017-10-15 15:16 | PDOC.EVN ---
Event Note - Event Note Event Note: NO COMPLAINTS. NO NEEDS. HEART IS REGULAR, LUNGS CLEAR, ABDOMEN SOFT. NA IS ALREADY SUBSTANTIALLY IMPROVED WITH SIMPLE FLUID RESTRICTIONS. APPEARS NEUROLOGICALLY STABLE. WILL ALLOW ABOUT 1500 CC FLUID INTAKE DAILY. HOPE HE WILL BE STABLE ENOUGH TO DC IN AM.
--- NOTE | 2017-10-15 15:55 | CON ---
DATE OF CONSULTATION: 10/15/2017 SERVICE: Renal Medicine. HISTORY OF PRESENT ILLNESS: Mr. Hannah is a 37-year-old white male who was admitted for mental status change. He was noted to be severely hyponatremic. 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 I was called by the ER regarding the low serum sodium. I did advise him at that time to place him o n a free water restriction. This morning, his serum sodium is actually much improved. His initial s scottie sodium on admission was 118. He was placed on free water restriction and is now currently at 13 5. Please note, his renal function is normal. REVIEW OF SYSTEMS: Positive for increased thirst. No nausea, no vomiting, no diarrhea, no syncopal episode, no productive cough, no fever or chills. No dysuria. Appetite and energy level are fair. Occasional headache. Positive for mental status change. No diplopia, no fever or chills. MEDICATIONS: Lovenox 30 mg subcu daily, K-Dur 20 mEq once a day, Zofran p.r.n. HOME MEDICATIONS: Included atorvastatin 20 mg at bedtime, Depakote 500 mg p.o. b.i.d., lisinopril/hy drochlorothiazide 12.5 mg daily, magnesium oxide 400 mg p.o. b.i.d., Invega 156 mg subcu once a day, KCl 20 mEq once a day. PAST MEDICAL HISTORY: History of psychogenic polydipsia, status post hypokalemia, status post acute hyponatremia, bipolar disorder, hyperlipidemia, hypertension. PAST SURGICAL HISTORY: No significant surgeries. SOCIAL HISTORY: Patient is single. No children, lives with his mother, he lives in [place]. Currentl y, no smoking. Used to work at [employer]. No IV drug abuse. FAMILY HISTORY: No family history of ESRD. ALLERGIES: None. TRAUMA: None. IMMUNIZATIONS: Up to date. HOSPITALIZATIONS: Please see past medical history. PHYSICAL EXAMINATION: VITAL SIGNS: Blood pressure is 116/87, heart rate 107, temperature 99.1, respiratory rate 16, pulse ox 99%. GENERAL: He is noted to be awake, alert, comfortable, not in distress. SKIN: Adequate turgor. HEENT: Pinkish conjunctivae, anicteric sclerae. NECK: No neck mass, no carotid bruits, no JVD. CHEST: No deformities. LUNGS: Clear breath sounds. HEART: Normal sinus rhythm. No murmur, no gallops or rubs. ABDOMEN: Globular, soft, nontender, no masses. EXTREMITIES: No edema, no deformities. NEUROLOGIC: Awake, oriented to 3 spheres. Moving all extremities. No tremors or asterixis. No darius edward. LABORATORY DATA: Of 10/14/2017, white count 12.1, hemoglobin 13.7. Urinalysis: Specific gravity is 1.002. 10/14/2017, sodium 118. 10/15/2017, sodium 135, potassium 4.4, chloride 103, carbon dioxide 26, BUN 4, creatinine 0.85, calcium is 10. ASSESSMENT AND PLAN: Hyponatremia - most likely from psychogenic polydipsia. The patient has been instructed to limit his free water intake. He said he will try to comply with this. Please note, the hyponatremia is now b ack to almost normal levels with feel free water restriction in the last 12 hours. I would advise th at we discontinue his hydrochlorothiazide and not to resume it due to the previous episodes of hypona tremia. Agree with current management. Will be signing off. Please recall if needed.
[2017-10-15 18:33] LABS: Anion Gap 12 mmol/L (10-20); BUN (Urea Nitrogen) 6 mg/dL (8.9-20.6); Calc. Creatinine Clearance 146 mL/min (70-130); Carbon Dioxide 25 mmol/L (22-29); Chloride 104 mmol/L (98-107); Estimated GFR-MDRD 79; Glucose 88 mg/dL (70-105); Potassium 4.3 mmol/L (3.5-5.1); Sodium 137 mmol/L (136-145)
[2017-10-15] MEDS: Divalproex Sodium DR 500 MG TAB PO SCH (20:01)
[2017-10-15] MEDS: Magnesium Oxide 400 MG TAB PO SCH (20:04)
[2017-10-15 23:46] LABS: Anion Gap 13 mmol/L (10-20); BUN (Urea Nitrogen) 9 mg/dL (8.9-20.6); Calc. Creatinine Clearance 167 mL/min (70-130); Calcium 9.3 mg/dL (7.8-10.44); Carbon Dioxide 23 mmol/L (22-29); Chloride 105 mmol/L (98-107); Estimated GFR-MDRD Greater than 90; Glucose 82 mg/dL (70-105); Potassium 4.2 mmol/L (3.5-5.1); Sodium 137 mmol/L (136-145)
[2017-10-16 05:55] LABS: #Eosinphils 0.3 thou/uL (0.0-0.7); #Lymphocytes 3.1 thou/uL (1.20-3.40); #Monocytes 0.9 thou/uL (0.11-0.59); #Neutrophils 2.7 thou/uL (1.40-6.50); %Basophils 0.6 % (0.0-1.0); %Eosinophils 4.1 % (0.0-10.0); %Lymphocytes 44.6 % (21.0-51.0); %Monocytes 12.2 % (0.0-10.0); %Neutrophils 38.5 % (42.0-75.0); Hemoglobin 14.1 g/dL (14.0-18.0); Mean Corpuscular HGB CONC 33.6 g/dL (32.0-36.0); Mean Corpuscular Hemoglobin 29.9 pg (27.0-31.0); Mean Corpuscular Volume 88.9 fL (78.0-98.0); Mean Platelet Volume 6.3 fL (7.4-10.4); Platelet Count 278 thou/uL (130-400); RBC Distribution Width 11.1 % (11.5-14.5); Red Blood Cell (RBC) Count 4.72 mill/uL (4.70-6.10); White Blood Cell (WBC) Count 7.1 thou/uL (4.8-10.8)
[2017-10-16 05:58] LABS: Anion Gap 11 mmol/L (10-20); BUN (Urea Nitrogen) 9 mg/dL (8.9-20.6); Calc. Creatinine Clearance 148 mL/min (70-130); Calcium 9.5 mg/dL (7.8-10.44); Carbon Dioxide 25 mmol/L (22-29); Chloride 105 mmol/L (98-107); Estimated GFR-MDRD 80; Glucose 84 mg/dL (70-105); Potassium 4.4 mmol/L (3.5-5.1); Sodium 137 mmol/L (136-145); Valproic Acid (Depakene) 45.5 ug/mL (50.0-100.0)
[2017-10-16] MEDS: Divalproex Sodium DR 500 MG TAB PO SCH (08:52)
[2017-10-16] MEDS: Magnesium Oxide 400 MG TAB PO SCH (08:53)
[2017-10-16] MEDS: Enoxaparin Sodium 30 MG/0.3 ML SYRINGE SC SCH (08:53)
[2017-10-16] MEDS: Potassium Chloride 20 MEQ TAB PO SCH (08:53)
[2017-10-16] MEDS ORDERED: Atorvastatin Calcium 20 MG TAB PO SCH (09:00)
[2017-10-16] MEDS ORDERED: Lisinopril/Hydrochlorothiazide 20 mg/12.5 mg Tablet PO SCH (09:00)
--- NOTE | 2017-10-16 09:46 | PRG ---
DATE OF SERVICE: 10/16/2017 SUBJECTIVE: Mr. Hannah is a 37-year-old white male who was admitted for hyponatremia. The feeling wa s that he had psychogenic polydipsia. He was placed on a strict fluid restriction. Hyponatremia act ually improved over time. He has no complaints. He is wanting to go home. The patient denies any chest pain or shortness of breath. OBJECTIVE: VITAL SIGNS: Blood pressure is 102/65, heart rate 77, respiratory rate 16, temperature 97.9, pulse o x 98%. GENERAL: Awake, alert, supine, comfortable. SKIN: Adequate turgor. HEENT: He has pinkish conjunctivae, anicteric sclerae. NECK: No neck mass, no carotid bruits, no JVD. CHEST: No deformities. LUNGS: Clear breath sounds. No wheezing, no crackles. HEART: Normal sinus rhythm. No murmur, no gallops or rubs. ABDOMEN: Globular, soft, nontender, no masses. EXTREMITIES: No edema, no deformities. MEDICATIONS: 10/16/2017 - Reviewed. LABORATORY: 10/16/2017 - White count 7.1, hemoglobin 14.1. Sodium 137, potassium 4.4, chloride 105, carbon dioxide 25, BUN 9, creatinine 1.04, CK 1540. ASSESSMENT AND PLAN: Hyponatremia secondary to psychogenic polydipsia, much improved with free water restriction. Counseling was done with this patient. I would also advise him not to be started on h ydrochlorothiazide. I changed his antihypertensive regimen to lisinopril at 20 mg tab once a day. D ue to his improved condition will be signing off. The patient will follow up at the [facility].
[2017-10-16 13:09] VITALS: BP 120/71; TEMP 98.5
[2017-10-16 13:34] LABS: Anion Gap 12 mmol/L (10-20); BUN (Urea Nitrogen) 11 mg/dL (8.9-20.6); Calc. Creatinine Clearance 129 mL/min (70-130); Calcium 9.9 mg/dL (7.8-10.44); Carbon Dioxide 26 mmol/L (22-29); Chloride 103 mmol/L (98-107); Estimated GFR-MDRD 69; Glucose 94 mg/dL (70-105); Potassium 4.3 mmol/L (3.5-5.1); Sodium 137 mmol/L (136-145)
--- NOTE | 2017-10-16 13:55 | DIS ---
DATE OF ADMISSION: 10/15/2017 DATE OF DISCHARGE: 10/16/2017 ADMITTING DIAGNOSIS: Acute encephalopathy. DISCHARGE DIAGNOSIS: Acute metabolic encephalopathy. SECONDARY DIAGNOSES: 1. Acute severe hyponatremia. 2. Acute psychogenic polydipsia. 3. Acute hypokalemia. 4. Psychiatric disorder. 5. Uncontrolled hypertension. CONSULTANTS INVOLVED IN THIS CARE: Dr. Larry Crystal from Nephrology. HISTORY OF PRESENT ILLNESS AND HOSPITAL COURSE: In brief, this is a 37-year-old white male with a kn own history of psychiatric disorder of psychogenic polydipsia. He had multiple admissions for the [facility] problem in the past. The patient presented with a complete altered mental status with a clear yovany dence of severe hyponatremia with low sodium. Patient was supplemented with normal saline, and durin g this time, it was noted the patient was on hydrochlorothiazide at home, which needs to be discontin ued. Nephrology was consulted, because of the hyponatremia and suggested the patient has a psychogen ic polydipsia, which is the only reason for drop in his sodium levels and also the patient on top of it is also on hydrochlorothiazide. I have recommended to stop this and prescribed lisinopril. The p atient is back to his baseline mental status where he does suffer from a schizophrenic disorder. The patient is safe to go back home and the patient is discharged home in stable condition. PHYSICAL EXAMINATION: VITAL SIGNS: Blood pressures are 110/67, heart rate is 75, respiratory rate is 20, saturations 98%. GENERAL: The patient is a moderately built and moderately nourished. He does not appear to be in ac [place] distress. CARDIOVASCULAR: S1 and S2 normal. No murmurs, no rubs, no gallops. LUNGS: Bilateral air entry was equal. No wheezing, no crackles. ABDOMEN: Soft, nontender. No guarding and no rebound tenderness. Bowel sounds normal. MUSCULOSKELETAL: No calf tenderness. No pedal edema. No joint tenderness, no joint swelling. PSYCHIATRIC: No signs of suicidal ideation. No sense of agitation was noted. The patient was alert and was answering all the questions. DISCHARGE MEDICATIONS: 1. Atorvastatin 20 mg p.o. daily. 2. Depakote 500 mg p.o. b.i.d. 3. Lisinopril 20 mg p.o. daily. 4. Palmitate 156 mcg monthly. DISCHARGE INSTRUCTIONS: 1. Continue activity as tolerated. 2. Advised to follow up with the psychiatrist in 1-2 weeks. 3. Advised to follow up with the primary care physician in 1 week to recheck his blood pressures. 4. Advised to continue diet as tolerated. 5. Advised to continue on the cardiac diet. I spent 35 minutes with this patient on day of discharge.
[2017-10-17] MEDS ORDERED: Lisinopril 20 MG TAB PO SCH (09:00)
--- NOTE | 2017-10-21 16:09 | EKG ---
Test Reason : Blood Pressure : / mmHG Vent. Rate : 135 BPM Atrial Rate : 135 BPM P-R Int : 116 ms QRS Dur : 088 ms QT Int : 394 ms P-R-T Axes : 030 014 025 degrees QTc Int : 591 ms Sinus tachycardia Possible Left atrial enlargement Possible Lateral infarct , age undetermined Abnormal ECG No ST elevation/MO Confirmed by LISSETTE SAUER ([id number]), dictionary editor MARTÍNEZ BACH ([id number]) on 10/21/2017 4:08:59 PM Referred By: Confirmed By:LISSETTE SAUER
== END 2017-10-16 13:30 | disposition home or self-care (01) ==
LOC: ERS 19:38 → 2NO 23:31
PROVIDERS: ADMIT Internal Medicine; ATTEND Internal Medicine
DX: G93.41 Metabolic encephalopathy (principal); E87.1 Hypo-osmolality and hyponatremia; E87.6 Hypokalemia; I10 Essential (primary) hypertension; E78.5 Hyperlipidemia, unspecified; F31.9 Bipolar disorder, unspecified; Z79.899 Other long term (current) drug therapy
CPT/HCPCS: 36415; 36416; 80048; 80053; 80164; 80306; 80307; 81003; 82550; 82553; 84484; 85025; 93005; 94760; 96372; A4216; G0378; J1650

== ENCOUNTER 2017-11-25 22:09 | Observation (INO) | payer OTHER ==
[2017-11-25 23:02] LABS: #Basophils 0.1 thou/uL (0.0-0.2); #Eosinphils 0.1 thou/uL (0.0-0.7); #Lymphocytes 2.4 thou/uL (1.20-3.40); #Monocytes 0.8 thou/uL (0.11-0.59); #Neutrophils 7.1 thou/uL (1.40-6.50); %Basophils 0.9 % (0.0-1.0); %Eosinophils 0.6 % (0.0-10.0); %Lymphocytes 23.1 % (21.0-51.0); %Monocytes 7.7 % (0.0-10.0); %Neutrophils 67.8 % (42.0-75.0); Hemoglobin 13.2 g/dL (14.0-18.0); Mean Corpuscular HGB CONC 36.2 g/dL (32.0-36.0); Mean Corpuscular Hemoglobin 30.9 pg (27.0-31.0); Mean Corpuscular Volume 85.2 fL (78.0-98.0); Mean Platelet Volume 6.4 fL (7.4-10.4); Platelet Count 211 thou/uL (130-400); RBC Distribution Width 10.9 % (11.5-14.5); Red Blood Cell (RBC) Count 4.27 mill/uL (4.70-6.10); White Blood Cell (WBC) Count 10.5 thou/uL (4.8-10.8)
[2017-11-25 23:03] LABS: Bilirubin Negative (Negative); Blood, Urine Negative (Negative); Clarity CLEAR (Clear); Glucose, Urine (Dipstick) Negative (Negative); Leukocyte Negative (Negative); Nitrite Negative (Negative); Protein, Urine (Dipstick) Negative (Neg-Trace); Urobilinogen 0.2 mg/dL (0.2-1.0); pH, Urine 6.5 (5.0-9.0)
[2017-11-25 23:05] LABS: Specific Gravity, Urine 1.001 (1.002-1.036)
[2017-11-25 23:28] LABS: ALT (SGPT) 27 U/L (8-55); AST (SGOT) 33 U/L (5-34); Albumin 4.3 g/dL (3.5-5.0); Alkaline Phosphatase 63 U/L (40-150); Anion Gap 14 mmol/L (10-20); BUN (Urea Nitrogen) 6 mg/dL (8.9-20.6); Bilirubin, Total 0.8 mg/dL (0.2-1.2); Calc. Creatinine Clearance 0 mL/min (70-130); Calcium 8.6 mg/dL (7.8-10.44); Carbon Dioxide 24 mmol/L (22-29); Chloride 89 mmol/L (98-107); Estimated GFR-MDRD Greater than 90; Globulin 2.2 g/dL (2.4-3.5); Glucose 97 mg/dL (70-105); Protein, Total 6.5 g/dL (6.0-8.3); Sodium 124 mmol/L (136-145)
[2017-11-25 23:36] LABS: Potassium 2.8 mmol/L (3.5-5.1)
[2017-11-25] MEDS ORDERED: Potassium Chloride 20 MEQ TAB ONE ×2 (23:46→23:49)
[2017-11-26] MEDS ORDERED: Acetaminophen 325 MG TAB PO PRN (02:43)
[2017-11-26 02:58] VITALS: BMI 35.9
[2017-11-26 05:24] LABS: Anion Gap 12 mmol/L (10-20); BUN (Urea Nitrogen) 6 mg/dL (8.9-20.6); Calc. Creatinine Clearance 174 mL/min (70-130); Carbon Dioxide 26 mmol/L (22-29); Chloride 98 mmol/L (98-107); Estimated GFR-MDRD Greater than 90; Glucose 86 mg/dL (70-105); Potassium 3.3 mmol/L (3.5-5.1); Sodium 133 mmol/L (136-145)
[2017-11-26 08:55] VITALS: BP 141/98; TEMP 99.2
[2017-11-26] MEDS ORDERED: Potassium Chloride 20 MEQ TAB PO SCH (10:00)
--- NOTE | 2017-11-26 11:13 | PRG ---
DATE OF SERVICE: 11/26/2017 SUBJECTIVE: Mr. Hannah is a 37-year-old black male with known history of psychogenic polydipsia. The patient has been not well in the last day or so. He has been more confused. He has underlying bipo lar disorder. On initial evaluation in the ER, serum sodium was 124. However, this morning is much improved at 133 with simple fluid restriction. He has been seen in the past for the same problem of psychogenic polydipsia. No other complaints. F eeling better this morning. OBJECTIVE: VITAL SIGNS: Blood pressure noted at 167/105, heart rate 102, respiratory rate 22, temperature 99, p ulse ox 98%. GENERAL: Awake, comfortable, not in distress. SKIN: Adequate turgor. HEENT: Pinkish conjunctivae, anicteric sclerae. NECK: No neck mass, no carotid bruits, no JVD. CHEST: No deformities. LUNGS: Clear breath sounds, no wheezing, no crackles. HEART: Normal sinus rhythm. No murmur, no gallops or rubs. ABDOMEN: Globular, soft, nontender. No masses. EXTREMITIES: No edema, no deformities. NEUROLOGIC: Awake, oriented to 3 spheres. He has a mild tremor. He has no ataxia. MEDICATIONS: Of 11/26/2017, reviewed. LABORATORY: Of 11/26/2017, sodium 133, potassium 3.3, chloride 98, carbon dioxide 26, BUN 6, creatin ine 0.88, calcium 9.0. On 11/25/2017, sodium 124, potassium 2.8, chloride 89, carbon dioxide 24. ASSESSMENT AND PLAN: 1. Mild hypokalemia, p.r.n. replacement. 2. Hyponatremia. This is secondary to psychogenic polydipsia. Serum sodium is actually much improv ed - improved spontaneously with fluid restriction. Again, the patient needs to be counseled. His p sychogenic polydipsia is most likely from underlying bipolar disorder. Consider resuming back his me ds for his bipolar disorder. No indication for any hypertonic saline. Due to the much improved seru m sodium, we will be signing off. Please recall if needed.
[2017-11-26] MEDS ORDERED: Divalproex Sodium DR 500 MG TAB PO SCH (21:00)
--- NOTE | 2017-11-26 22:25 | HP ---
CHIEF COMPLAINT: Not feeling well. HISTORY OF PRESENT ILLNESS: Patient is a 37-year-old male with a history of psychogenic polydipsia, also bipolar disorder who was brought in by his parents since he was not feeling well. The patient s tates that normally, especially on the weekends, he likes to drink water and cannot help himself and drinks several glasses of water. He was unable to quantify how much water he took yesterday. The pa liabetty states that he has not seen his psychiatrist in a while and has been compliant with his medicat ions. The patient states that he tries not to; however, he just cannot help himself and just keeps d rinking water. Denies any suicidal thoughts or ideations. PAST MEDICAL HISTORY: History obtained from the records which indicates hypertension, hyperlipidemia , psychogenic polydipsia, and bipolar disorder. PAST SURGICAL HISTORY: He had a tonsillectomy. REVIEW OF SYSTEMS: All negative except for the ones mentioned above in the HPI. HOME MEDICATIONS: The patient takes lisinopril 20 mg daily, Depakote 500 mg b.i.d., atorvastatin 20 mg daily, and Invega 156 mg subcu monthly. ALLERGIES: He has got no known drug allergies. SOCIAL HISTORY: Lives with his parents. Denies any drugs, alcohol, or smoking history. FAMILY HISTORY: No history of recurrent hyponatremia. PHYSICAL EXAMINATION: VITAL SIGNS: Temperature of 99.0, heart rate of 100, respirations are 18. GENERAL: He is awake, alert, and oriented x3, does not appear in any distress; however, is very fidg ety, states that he wants to go home. CARDIOVASCULAR: S1, S2 present. No murmurs, rubs, or gallops. ABDOMEN: Soft, nontender. Bowel sounds are present x2. LUNGS: Clear to auscultation, rhonchi, or wheezes noted. EXTREMITIES: No edema. NEUROLOGIC: No deficits noted except he does have constant fidgety, which he states that he just can not stop. LABORATORY DATA: As of the following: His sodium on admission was 124, potassium was 2.8, BUN of 6, creatinine 0.84. His hematology: WBC of 10.5, hemoglobin of 13.3, hematocrit of 36.4, platelets ar e 211,000. ASSESSMENT AND PLAN: 1. The patient is a very pleasant 37-year-old male who presents to the hospital with complaints of f eeling unwell. 2. Hyponatremia, most likely psychogenic polydipsia secondary to excessive drinking fluids. Nephrol ruddy has been consulted. The patient has been educated on following up with his psychiatrist for furt her evaluation or medication adjustment in regard to this since he comes in very often with symptoms of hyponatremia. I will continue the patient's home medications. 3. Hypokalemia. We will replace. The patient was educated on eating a banana everyday. 4. Hypertension. Continue his home medications. 5. History of bipolar disorder. We will continue his home medications.
--- NOTE | 2017-11-26 23:22 | DIS ---
DATE OF ADMISSION: 11/26/2017 DATE OF DISCHARGE: 11/24/2017 DISCHARGE DIAGNOSES: 1. Hyponatremia secondary to psychogenic polydipsia. 2. Bipolar disorder. 3. Hypertension. 4. Hypokalemia. HOSPITAL COURSE: Patient is a 37-year-old male initially admitted to the hospital for not feeling we ll. The patient was found to be hyponatremic. He was seen by Nephrology. Patient's sodium after ab out 8-10 hours improved from 124-133. His potassium also improved with supplementary potassium. Gena suárez currently is asymptomatic and wants to go home. States he feels just fine, is able to tolerate p.o. fluid, no problems. Denies any suicidal thoughts or ideation. The patient states that he will follow up with his psychiatrist as outpatient. MEDICATIONS: There was no change from his home medications which were lisinopril 20 mg daily, Depako te 500 mg b.i.d., atorvastatin 20 mg daily, Invega Sustenna 156 mg subcu monthly. Again, the patient will be discharged home. Follow up with PCP. Please refer to my H&P for further information.
[2017-11-27] MEDS ORDERED: Lisinopril 20 MG TAB PO SCH (09:00)
[2017-11-27] MEDS ORDERED: Atorvastatin Calcium 20 MG TAB PO SCH (09:00)
== END 2017-11-26 15:36 | disposition home or self-care (01) ==
LOC: ERS 22:09 → 2SW 11-26 02:33
PROVIDERS: ADMIT Internal Medicine; ATTEND Internal Medicine
DX: R63.1 Polydipsia (principal); E87.1 Hypo-osmolality and hyponatremia; F31.9 Bipolar disorder, unspecified; I10 Essential (primary) hypertension; E87.6 Hypokalemia; E78.5 Hyperlipidemia, unspecified
CPT/HCPCS: 36415; 80048; 80053; 80164; 81003; 83930; 83935; 84300; 85025; 93005; G0378

== ENCOUNTER 2018-05-05 21:22 | Inpatient (IN) | payer OTHER ==
[2018-05-05 21:57] LABS: #Basophils 0.1 thou/uL (0.0-0.2); #Eosinphils 0.2 thou/uL (0.0-0.7); #Lymphocytes 3.5 thou/uL (1.20-3.40); #Monocytes 1.7 thou/uL (0.11-0.59); #Neutrophils 10.6 thou/uL (1.40-6.50); %Basophils 0.6 % (0.0-1.0); %Eosinophils 1.4 % (0.0-10.0); %Lymphocytes 21.7 % (21.0-51.0); %Monocytes 10.3 % (0.0-10.0); Mean Corpuscular HGB CONC 35.4 g/dL (32.0-36.0); Mean Corpuscular Hemoglobin 30.3 pg (27.0-31.0); Mean Corpuscular Volume 85.7 fL (78.0-98.0); Mean Platelet Volume 7.3 fL (7.4-10.4); Platelet Count 245 thou/uL (130-400); Red Blood Cell (RBC) Count 4.62 mill/uL (4.70-6.10); White Blood Cell (WBC) Count 16.1 thou/uL (4.8-10.8)
[2018-05-05 22:16] LABS: ALT (SGPT) 30 U/L (8-55); AST (SGOT) 28 U/L (5-34); Albumin 4.1 g/dL (3.5-5.0); Alkaline Phosphatase 75 U/L (40-150); Anion Gap 18 mmol/L (10-20); BUN (Urea Nitrogen) 8 mg/dL (8.9-20.6); Bilirubin, Total 0.7 mg/dL (0.2-1.2); Calc. Creatinine Clearance 0 mL/min (70-130); Calcium 8.2 mg/dL (7.8-10.44); Carbon Dioxide 17 mmol/L (22-29); Chloride 88 mmol/L (98-107); Estimated GFR-MDRD Greater than 90; Globulin 2.6 g/dL (2.4-3.5); Glucose 123 mg/dL (70-105); Protein, Total 6.7 g/dL (6.0-8.3); Sodium 120 mmol/L (136-145)
[2018-05-05] MEDS ORDERED: Potassium Chloride 20 MEQ TAB ONE (22:28)
[2018-05-05] MEDS ORDERED: Lorazepam 2 MG/ML VIAL ONE ×2 (22:34→23:43)
[2018-05-05] MEDS ORDERED: Ondansetron ODT 4 MG TAB PO PRN (23:42)
[2018-05-05] MEDS ORDERED: Acetaminophen 325 MG TAB PO PRN (23:42)
[2018-05-06 00:35] VITALS: BMI 40.8
[2018-05-06 01:37] LABS: Potassium, Urine Less than 10.0 mmol/L; Sodium, Urine Less than 20 mmol/L (Not Available)
[2018-05-06 01:38] LABS: Osmolality, Urine 50 mOsm/kg (300-900)
[2018-05-06 02:14] LABS: Anion Gap 14 mmol/L (10-20); BUN (Urea Nitrogen) 6 mg/dL (8.9-20.6); Calc. Creatinine Clearance 218 mL/min (70-130); Carbon Dioxide 22 mmol/L (22-29); Chloride 94 mmol/L (98-107); Estimated GFR-MDRD Greater than 90; Glucose 106 mg/dL (70-105); Sodium 127 mmol/L (136-145)
[2018-05-06 06:38] LABS: Anion Gap 15 mmol/L (10-20); BUN (Urea Nitrogen) 8 mg/dL (8.9-20.6); Calc. Creatinine Clearance 206 mL/min (70-130); Calcium 8.9 mg/dL (7.8-10.44); Carbon Dioxide 21 mmol/L (22-29); Chloride 102 mmol/L (98-107); Estimated GFR-MDRD Greater than 90; Glucose 96 mg/dL (70-105); Potassium 3.8 mmol/L (3.5-5.1); Sodium 134 mmol/L (136-145)
[2018-05-06 07:25] LABS: #Eosinphils 0.1 thou/uL (0.0-0.7); #Lymphocytes 2.3 thou/uL (1.20-3.40); #Monocytes 1.1 thou/uL (0.11-0.59); #Neutrophils 7.7 thou/uL (1.40-6.50); %Basophils 0.3 % (0.0-1.0); %Eosinophils 1.3 % (0.0-10.0); %Lymphocytes 20.3 % (21.0-51.0); %Monocytes 9.4 % (0.0-10.0); %Neutrophils 68.7 % (42.0-75.0); Mean Corpuscular HGB CONC 35.3 g/dL (32.0-36.0); Mean Corpuscular Hemoglobin 30.3 pg (27.0-31.0); Mean Corpuscular Volume 85.8 fL (78.0-98.0); Mean Platelet Volume 7.6 fL (7.4-10.4); Platelet Count 227 thou/uL (130-400); RBC Distribution Width 11.1 % (11.5-14.5); Red Blood Cell (RBC) Count 4.61 mill/uL (4.70-6.10); White Blood Cell (WBC) Count 11.1 thou/uL (4.8-10.8)
[2018-05-06] MEDS: Atorvastatin Calcium 20 MG TAB PO SCH (09:11)
[2018-05-06] MEDS: Divalproex Sodium DR 500 MG TAB PO SCH ×2 (09:11→21:44)
[2018-05-06] MEDS: Enoxaparin Sodium 40 MG/0.4 ML SYRINGE SC SCH (09:11)
[2018-05-06] MEDS: Lisinopril 20 MG TAB PO SCH (09:11)
[2018-05-06 10:58] LABS: Anion Gap 13 mmol/L (10-20); BUN (Urea Nitrogen) 8 mg/dL (8.9-20.6); Calc. Creatinine Clearance 190 mL/min (70-130); Calcium 9.5 mg/dL (7.8-10.44); Carbon Dioxide 22 mmol/L (22-29); Chloride 107 mmol/L (98-107); Estimated GFR-MDRD Greater than 90; Glucose 105 mg/dL (70-105); Potassium 4.5 mmol/L (3.5-5.1); Sodium 137 mmol/L (136-145)
--- NOTE | 2018-05-06 12:46 | HP ---
PRIMARY CARE DOCTOR: Dr. Mc. CODE STATUS: Full code. TIME OF EVALUATION: 11:20 p.m. CHIEF COMPLAINT: Abdominal cramping. HISTORY OF PRESENT ILLNESS: This is a 37-year-old male patient with past medical history of schizophrenia and bipolar disorder. The patient came to the hospital after having abdominal cramping, symptoms were present for the past few days and also associated with polydipsia. No clear triggers. No alleviating factors. The patient has reported having these symptoms in the past and he had been diagnosed with having low sodium. The patient is also complaining that he is taking Invega, this may be related to his current symptoms and hyponatremia. Symptoms are moderate, he also has associated nausea and vomiting that is controlled now. REVIEW OF SYSTEMS: CONSTITUTIONAL: No fever or chills. The patient does have generalized weakness. RESPIRATORY: No cough, sputum production, or shortness of breath. CARDIOVASCULAR: The patient has no chest pain or palpitation. GASTROINTESTINAL: The patient has abdominal cramps, nausea. No vomiting. No diarrhea. PROPERTY TECHNICIAN: No dizziness, headache, or feeling lightheaded. GENITOURINARY: No burning on urination. EXTREMITIES: No leg swelling. All other systems were reviewed and negative except for the findings mentioned above. PAST MEDICAL HISTORY: Positive for hyperlipidemia, diabetes, hypertension, psychogenic polydipsia. PAST SURGICAL HISTORY: Tonsillectomy. PSYCH HISTORY: Bipolar disorder, also schizophrenia. SOCIAL HISTORY: No alcohol, no drugs. No smoking history. FAMILY HISTORY: Reviewed and noncontributory to current presentation. KNOWN ALLERGIES: No known drug allergies reported. MEDICATIONS: 1. Chlorpromazine. 2. Lisinopril. PHYSICAL EXAMINATION: VITAL SIGNS: On presentation, blood pressure with heart rate 123, respiratory rate was 24. Pain was 7/10. Oxygen saturation was 97% on room air. Temperature 98.5. GENERAL APPEARANCE: The patient was alert, oriented, in no acute distress. HEENT: Eyes; normal conjunctivae. Moist oral mucosa. Anicteric. No JVD. RESPIRATORY: Bilateral air entry. No rales. No wheezes. Symmetric expansion. CARDIOVASCULAR: Normal rate, regular rhythm. No murmurs. No gallops. No edema. ABDOMEN: Soft. Normal bowel sounds. MUSCULOSKELETAL: Baseline range of motion ]and strength. No tenderness. SKIN: Warm, intact. No pallor. No rash. No redness. Peripheral pulses are present. Capillary refill seems to be intact. NEUROLOGIC: No evidence of any new focal weakness. Baseline speech. Cranial nerves seems to be intact. PSYCHIATRIC: The patient is in good mood. No anxiety. Oriented, optimal judgment seems to be at baseline. IMAGING STUDIES: EKG, sinus tachycardia, ventricular rate 114, MD 154, QRS 94, QT corrected 463. LABORATORY DATA: Labs were reviewed. White count 16.1, hemoglobin 14, MCV 85.7, and platelet count 245. Sodium 120, potassium 3.0, chloride 88, carbon dioxide was 17, anion gap 18, BUN 8, creatinine 0.8, GFR greater than 90, glucose 123. LFTs were negative. ASSESSMENT AND PLAN: The patient will be placed in the hospital with following medical problems: 1. History of schizophrenia and bipolar disorder. Medications for this problem including that could be related to hyponatremia, these need to be reconsidered with psych treatment him. We will consider any need for change in medications. 2. Moderate hyponatremia with sodium 120, the patient has no significant symptoms, this is chronic, we will place the patient on fluid restriction for now. We have sent electrolytes, we have sent osmo in both urine and serum. As of now, we history in the past with the same problem, so as soon as we get result, we may need to adjust the treatment. We will monitor the goal for sodium correction will be around 6 mEq in the first 24 hours. We will adjust IV fluids depending on correction of sodium. 3. Chronic hypokalemia. We will replace electrolytes as needed. This is mild at 3.0. 4. Metabolic acidosis that is mild, carbon dioxide 17, we will monitor. 5. Hyperglycemia. Sodium 123. We will monitor, we will treat accordingly. It is mild. 6. Hyperlipidemia, reconcile home medications, low-cholesterol diet is advised. 7. Leukocytosis with white count 16.1, areas of infection at this point, we will monitor, we will treat accordingly. 8. Deep venous thrombosis prophylaxis. Job ID: [id number]
[2018-05-06 15:16] LABS: Anion Gap 14 mmol/L (10-20); BUN (Urea Nitrogen) 10 mg/dL (8.9-20.6); Calc. Creatinine Clearance 171 mL/min (70-130); Calcium 9.9 mg/dL (7.8-10.44); Carbon Dioxide 21 mmol/L (22-29); Chloride 108 mmol/L (98-107); Estimated GFR-MDRD 85; Glucose 97 mg/dL (70-105); Potassium 4.1 mmol/L (3.5-5.1); Sodium 139 mmol/L (136-145)
[2018-05-06] MEDS ORDERED: Lorazepam 1 MG TAB PO PRN (17:46)
[2018-05-06 18:45] LABS: Anion Gap 14 mmol/L (10-20); BUN (Urea Nitrogen) 11 mg/dL (8.9-20.6); Calc. Creatinine Clearance 169 mL/min (70-130); Calcium 9.5 mg/dL (7.8-10.44); Carbon Dioxide 21 mmol/L (22-29); Chloride 109 mmol/L (98-107); Estimated GFR-MDRD 84; Glucose 105 mg/dL (70-105); Potassium 4.1 mmol/L (3.5-5.1); Sodium 140 mmol/L (136-145)
--- NOTE | 2018-05-06 19:28 | PDOC.PN ---
- Subjective Encounter Start Date: 05/06/18 Encounter Start Time: 19:26 Subjective: No new complaint - Objective Resuscitation Status - Order Detail: 05/05/18 23:42 Resuscitation Status Routine Resuscitation Status: FULL: Full Resuscitation Vital Signs & Weight: Vital Signs (12 hours) Temp Pulse Resp BP Pulse Ox 05/06/18 15:36 97.4 F L 120 H 18 132/85 97 05/06/18 11:58 98.4 F 103 H 16 125/67 97 05/06/18 07:57 98.4 F 102 H 16 140/75 94 L Weight Weight 260 lb 4.8 oz I&O: 05/05/18 05/06/18 05/07/18 06:59 06:59 06:59 Intake Total 840 Output Total 2250 Balance -2250 840 Result Diagrams: 05/06/18 05:53 05/06/18 18:11 Phys Exam - Physical Examination Constitutional: NAD HEENT: PERRLA, moist MMs, sclera anicteric, TM's clear Neck: no nodes, no JVD, supple, full ROM Respiratory: no wheezing, no rales, no rhonchi, clear to auscultation bilateral Cardiovascular: RRR, no significant murmur, no rub Gastrointestinal: soft, non-tender, no distention, positive bowel sounds Musculoskeletal: no edema, pulses present Dx/Plan (1) Hypokalemia Code(s): E87.6 - HYPOKALEMIA Status: Acute (2) Hyponatremia Code(s): E87.1 - HYPO-OSMOLALITY AND HYPONATREMIA Status: Acute (3) Bipolar disorder Code(s): F31.9 - BIPOLAR DISORDER, UNSPECIFIED Status: Chronic Qualifiers: (4) HTN (hypertension) Code(s): I10 - ESSENTIAL (PRIMARY) HYPERTENSION Status: Chronic Qualifiers: - Plan geriatric social worker Sodium improved on fluid restriction -: Low sodium due to excessive water intake-Psychogenic polydipsia * .
[2018-05-06 23:39] LABS: Anion Gap 14 mmol/L (10-20); BUN (Urea Nitrogen) 13 mg/dL (8.9-20.6); Calc. Creatinine Clearance 174 mL/min (70-130); Calcium 9.4 mg/dL (7.8-10.44); Carbon Dioxide 21 mmol/L (22-29); Chloride 108 mmol/L (98-107); Estimated GFR-MDRD 87; Glucose 90 mg/dL (70-105); Potassium 4.1 mmol/L (3.5-5.1); Sodium 139 mmol/L (136-145)
[2018-05-07 03:05] LABS: Anion Gap 15 mmol/L (10-20); BUN (Urea Nitrogen) 12 mg/dL (8.9-20.6); Calc. Creatinine Clearance 188 mL/min (70-130); Calcium 9.4 mg/dL (7.8-10.44); Carbon Dioxide 21 mmol/L (22-29); Chloride 110 mmol/L (98-107); Estimated GFR-MDRD Greater than 90; Glucose 86 mg/dL (70-105); Potassium 4.7 mmol/L (3.5-5.1); Sodium 141 mmol/L (136-145)
[2018-05-07 06:52] LABS: Anion Gap 14 mmol/L (10-20); BUN (Urea Nitrogen) 12 mg/dL (8.9-20.6); Calc. Creatinine Clearance 151 mL/min (70-130); Calcium 9.4 mg/dL (7.8-10.44); Carbon Dioxide 24 mmol/L (22-29); Chloride 107 mmol/L (98-107); Estimated GFR-MDRD 81; Glucose 85 mg/dL (70-105); Potassium 4.3 mmol/L (3.5-5.1); Sodium 141 mmol/L (136-145)
[2018-05-07 08:37] VITALS: BP 115/73; TEMP 97.7
[2018-05-07] MEDS: Divalproex Sodium DR 500 MG TAB PO SCH (08:38)
[2018-05-07] MEDS: Lisinopril 20 MG TAB PO SCH (08:38)
[2018-05-07] MEDS: Enoxaparin Sodium 40 MG/0.4 ML SYRINGE SC SCH (08:38)
[2018-05-07] MEDS: Atorvastatin Calcium 20 MG TAB PO SCH (08:38)
--- NOTE | 2018-05-08 04:53 | DIS ---
DATE OF ADMISSION: 05/05/2018 DATE OF DISCHARGE: 05/07/2018 For details of the history and physical, please refer to dictations and records. SUMMARY: This is a 37-year-old gentleman with significant psychiatric problem, who presented here with what had been described as abdominal cramping and noted to have hyponatremia with sodium of 120. Patient since admission has been on fluid restriction with improvement in the sodium level, back to normal range. It is felt that patient has been drinking excessively and admitted with diagnosis of psychogenic polydipsia. Patient having maintained sustained clinical improvement and maintained the sodium level in the normal range, decision was taken to discharge this patient and to continue with moderate fluid restriction and follow up with the primary care physician status post discharge. TIME SPENT: Total time spent including [id number] encounter 31 minutes. Job ID: [id number]
== END 2018-05-07 12:18 | disposition home or self-care (01) | DRG 641 ==
LOC: ERS 21:22 → ERHOLD 22:46 → 2SW 05-06 00:24 → 2NO 05-06 15:10
PROVIDERS: ADMIT Hospitalist; ATTEND Hospitalist
DX: E87.1 Hypo-osmolality and hyponatremia (principal); F20.9 Schizophrenia, unspecified; F31.9 Bipolar disorder, unspecified; E78.5 Hyperlipidemia, unspecified; I10 Essential (primary) hypertension; E87.6 Hypokalemia; E87.2 Acidosis; E11.65 Type 2 diabetes mellitus with hyperglycemia; D72.829 Elevated white blood cell count, unspecified; R63.1 Polydipsia
CPT/HCPCS: 36415; 80048; 80053; 82436; 82570; 83930; 83935; 84133; 84300; 85025; 90471; 90686; 93005; 96361; 96374; 96376; G0008; J1650; J2060

== ENCOUNTER 2018-05-23 08:37 | Emergency (ER) | payer OTHER ==
[2018-05-23 09:11] LABS: #Lymphocytes 1.8 thou/uL (1.20-3.40); #Neutrophils 7.4 thou/uL (1.40-6.50); %Basophils 0.4 % (0.0-1.0); %Eosinophils 0.4 % (0.0-10.0); %Lymphocytes 17.3 % (21.0-51.0); %Monocytes 9.8 % (0.0-10.0); Hemoglobin 13.4 g/dL (14.0-18.0); Mean Corpuscular HGB CONC 35.3 g/dL (32.0-36.0); Mean Corpuscular Hemoglobin 30.1 pg (27.0-31.0); Mean Corpuscular Volume 85.3 fL (78.0-98.0); Mean Platelet Volume 6.8 fL (7.4-10.4); Platelet Count 231 thou/uL (130-400); RBC Distribution Width 11.2 % (11.5-14.5); Red Blood Cell (RBC) Count 4.45 mill/uL (4.70-6.10); White Blood Cell (WBC) Count 10.2 thou/uL (4.8-10.8)
[2018-05-23] MEDS ORDERED: Promethazine HCl 25 MG/ML VIAL ONE (09:31)
[2018-05-23 09:32] LABS: ALT (SGPT) 32 U/L (8-55); AST (SGOT) 43 U/L (5-34); Acetaminophen Less than 6.0 mcg/mL (10.0-30.0); Albumin 4.4 g/dL (3.5-5.0); Alcohol Less than 10 mg/dL (Less than 10); Alkaline Phosphatase 75 U/L (40-150); Anion Gap 17 mmol/L (10-20); BUN (Urea Nitrogen) 8 mg/dL (8.9-20.6); Bilirubin, Total 1.2 mg/dL (0.2-1.2); Calc. Creatinine Clearance 0 mL/min (70-130); Calcium 9.2 mg/dL (7.8-10.44); Carbon Dioxide 22 mmol/L (22-29); Chloride 91 mmol/L (98-107); Estimated GFR-MDRD Greater than 90; Globulin 2.7 g/dL (2.4-3.5); Glucose 98 mg/dL (70-105); Protein, Total 7.1 g/dL (6.0-8.3); Salicylate Less than 8.0 mg/dL (15.0-30.0); Sodium 127 mmol/L (136-145)
[2018-05-23 09:39] LABS: Potassium 2.9 mmol/L (3.5-5.1)
[2018-05-23 09:51] LABS: Bilirubin Negative (Negative); Blood, Urine Negative (Negative); Clarity CLEAR (Clear); Glucose, Urine (Dipstick) Negative (Negative); Leukocyte Negative (Negative); Nitrite Negative (Negative); Protein, Urine (Dipstick) Negative (Neg-Trace); Specific Gravity, Urine 1.001 (1.002-1.036); Urobilinogen 0.2 mg/dL (0.2-1.0)
[2018-05-23] MEDS ORDERED: Potassium Bicarbonate/Cit Ac 25 MEQ TAB ONE (10:00)
[2018-05-23 10:07] LABS: Amphetamine Not Detected (NotDetected); Barbiturates Screen Not Detected (NotDetected); Benzodiazepine Screen Not Detected (NotDetected); Cocaine Metabolite Screen Not Detected (NotDetected); Medtox Control Line Valid? VALID (VALID); Medtox Reader # READER 1; Methadone Not Detected (NotDetected); Methamphetamine Not Detected (NotDetected); Opiate Screen Not Detected (NotDetected); Oxycodone Screen Not Detected (NotDetected); Phencyclidine (PCP) Not Detected (NotDetected); THC/Cannabinoid Screen Not Detected (NotDetected); Tricyclic Screen Not Detected (NotDetected)
--- NOTE | 2018-05-26 18:16 | EKG ---
Test Reason : Blood Pressure : / mmHG Vent. Rate : 113 BPM Atrial Rate : 113 BPM P-R Int : 140 ms QRS Dur : 084 ms QT Int : 340 ms P-R-T Axes : 057 035 028 degrees QTc Int : 466 ms Sinus tachycardia Junctional ST depression, probably normal Borderline ECG Confirmed by VALENTINA INGRAM, JASON ([id number]), visual effects editor GUY HERNANDEZ ([id number]) on 05/26/2018 6:16:26 PM Referred By: Confirmed By:JASON MONTGOMERY MD
== END 2018-05-23 13:13 | disposition home or self-care (01) ==
LOC: ERS 08:37
DX: F31.9 Bipolar disorder, unspecified (principal); R63.1 Polydipsia; E87.6 Hypokalemia; E87.1 Hypo-osmolality and hyponatremia; E78.5 Hyperlipidemia, unspecified; I10 Essential (primary) hypertension; Z79.899 Other long term (current) drug therapy
CPT/HCPCS: 36416; 80053; 80306; 80307; 81003; 84484; 85025; 93005; 96372; J2550

== ENCOUNTER 2018-09-12 21:21 | Inpatient (IN) | payer OTHER ==
[2018-09-12 22:16] LABS: Bilirubin Negative (Negative); Blood, Urine Negative (Negative); Clarity CLEAR (Clear); Glucose, Urine (Dipstick) Negative (Negative); Leukocyte Negative (Negative); Nitrite Negative (Negative); Protein, Urine (Dipstick) Negative (Neg-Trace); Specific Gravity, Urine 1.002 (1.002-1.036); Urobilinogen 0.2 mg/dL (0.2-1.0); pH, Urine 6.5 (5.0-9.0)
[2018-09-12 22:26] LABS: #Basophils 0.1 thou/uL (0.0-0.2); #Eosinphils 0.3 thou/uL (0.0-0.7); #Lymphocytes 3.5 thou/uL (1.20-3.40); #Monocytes 1.5 thou/uL (0.11-0.59); %Basophils 0.6 % (0.0-1.0); %Eosinophils 1.9 % (0.0-10.0); %Lymphocytes 24.3 % (21.0-51.0); %Monocytes 10.2 % (0.0-10.0); Hemoglobin 13.3 g/dL (14.0-18.0); Mean Corpuscular HGB CONC 36.4 g/dL (32.0-36.0); Mean Corpuscular Volume 85.2 fL (78.0-98.0); Mean Platelet Volume 7.2 fL (7.4-10.4); Platelet Count 228 thou/uL (130-400); RBC Distribution Width 11.7 % (11.5-14.5); White Blood Cell (WBC) Count 14.2 thou/uL (4.8-10.8)
[2018-09-12 22:49] LABS: ALT (SGPT) 32 U/L (8-55); AST (SGOT) 28 U/L (5-34); Albumin 3.8 g/dL (3.5-5.0); Alkaline Phosphatase 64 U/L (40-150); Anion Gap 13 mmol/L (10-20); BUN (Urea Nitrogen) 11 mg/dL (8.9-20.6); Bilirubin, Total 0.8 mg/dL (0.2-1.2); CK (CPK) 1391 U/L (30-200); Calc. Creatinine Clearance 0 mL/min (70-130); Calcium 8.3 mg/dL (7.8-10.44); Carbon Dioxide 21 mmol/L (22-29); Chloride 89 mmol/L (98-107); Estimated GFR-MDRD 90; Globulin 2.4 g/dL (2.4-3.5); Glucose 131 mg/dL (70-105); Lipase 26 U/L (8-78); Protein, Total 6.2 g/dL (6.0-8.3); Sodium 120 mmol/L (136-145)
[2018-09-12 23:20] LABS: Acetaminophen Less than 6.0 mcg/mL (10.0-30.0); Alcohol Less than 10 mg/dL (Less than 10); Salicylate Less than 8.0 mg/dL (15.0-30.0)
[2018-09-12 23:28] LABS: Medtox Reader # READER 4
[2018-09-12 23:29] LABS: Amphetamine Not Detected (NotDetected); Barbiturates Screen Not Detected (NotDetected); Benzodiazepine Screen Not Detected (NotDetected); Cocaine Metabolite Screen Not Detected (NotDetected); Medtox Control Line Valid? VALID (VALID); Methadone Not Detected (NotDetected); Methamphetamine Not Detected (NotDetected); Opiate Screen Not Detected (NotDetected); Oxycodone Screen Not Detected (NotDetected); Phencyclidine (PCP) Not Detected (NotDetected); THC/Cannabinoid Screen Not Detected (NotDetected); Tricyclic Screen Not Detected (NotDetected)
[2018-09-12] MEDS ORDERED: Potassium Chloride 20 MEQ TAB ONE (23:40)
[2018-09-12] MEDS ORDERED: Lorazepam 2 MG/ML VIAL ONE (23:40)
[2018-09-13 00:29] LABS: Anion Gap 13 mmol/L (10-20); BUN (Urea Nitrogen) 10 mg/dL (8.9-20.6); Calc. Creatinine Clearance 0 mL/min (70-130); Calcium 8.1 mg/dL (7.8-10.44); Carbon Dioxide 20 mmol/L (22-29); Chloride 94 mmol/L (98-107); Estimated GFR-MDRD Greater than 90; Glucose 126 mg/dL (70-105); Sodium 124 mmol/L (136-145)
[2018-09-13 00:39] LABS: Potassium 2.8 mmol/L (3.5-5.1)
[2018-09-13] MEDS ORDERED: Potassium Chloride 20 MEQ TAB ONE (01:10)
[2018-09-13] MEDS ORDERED: Nitroglycerin 2% Ointment 1 INCH/1 GM Packet ONE (01:11)
[2018-09-13] MEDS ORDERED: Senokot S 8.6-50 MG TAB PO PRN (02:00)
[2018-09-13] MEDS ORDERED: Acetaminophen 325 MG TAB PO PRN (02:00)
[2018-09-13 02:20] VITALS: BMI 40.4
[2018-09-13] MEDS ORDERED: Magnesium 2 GM/50 ML 2 GM in Premix Bag 1 BAG IVPB SCH ×2 (02:30→06:00)
[2018-09-13] MEDS: Potassium Chloride 10 MEQ in Premix Bag 1 BAG IVPB SCH (03:07)
[2018-09-13 03:22] LABS: #Basophils 0.1 thou/uL (0.0-0.2); #Eosinphils 0.2 thou/uL (0.0-0.7); #Lymphocytes 3.1 thou/uL (1.20-3.40); #Monocytes 1.1 thou/uL (0.11-0.59); #Neutrophils 6.3 thou/uL (1.40-6.50); %Basophils 0.6 % (0.0-1.0); %Eosinophils 2.3 % (0.0-10.0); %Lymphocytes 28.5 % (21.0-51.0); %Monocytes 10.4 % (0.0-10.0); %Neutrophils 58.2 % (42.0-75.0); Hemoglobin 13.4 g/dL (14.0-18.0); Mean Corpuscular HGB CONC 35.4 g/dL (32.0-36.0); Mean Corpuscular Hemoglobin 30.9 pg (27.0-31.0); Mean Corpuscular Volume 87.3 fL (78.0-98.0); Mean Platelet Volume 7.2 fL (7.4-10.4); Platelet Count 221 thou/uL (130-400); RBC Distribution Width 11.5 % (11.5-14.5); Red Blood Cell (RBC) Count 4.33 mill/uL (4.70-6.10); White Blood Cell (WBC) Count 10.9 thou/uL (4.8-10.8)
[2018-09-13 03:41] LABS: Anion Gap 13 mmol/L (10-20); BUN (Urea Nitrogen) 8 mg/dL (8.9-20.6); CK (CPK) 1759 U/L (30-200); Calc. Creatinine Clearance 218 mL/min (70-130); Calcium 8.7 mg/dL (7.8-10.44); Carbon Dioxide 18 mmol/L (22-29); Chloride 102 mmol/L (98-107); Estimated GFR-MDRD Greater than 90; Glucose 86 mg/dL (70-105); Potassium 3.7 mmol/L (3.5-5.1); Sodium 129 mmol/L (136-145)
[2018-09-13 04:17] LABS: Hemoglobin A1c 5.6 % (4.0-6.0)
--- NOTE | 2018-09-13 04:48 | HP ---
CHIEF COMPLAINT: Thirst. HISTORY OF PRESENT ILLNESS: The patient is a 37-year-old male with a history of bipolar disorder, multiple admissions for polydipsia, who presented to the hospital for increased thirst. No family around at bedside to provide additional history. The patient is really unable to tell me what made him come into the hospital today. The patient denies any fevers or chills. Denies any abdominal pain, nausea or vomiting. According to ER note, the patient's father reports that he is an [facility] patient and has been diagnosed with bipolar disorder and schizophrenia and apparently it is noted that the patient was admitted to the hospital with increased thirst and a history of psychogenic polydipsia. PAST MEDICAL HISTORY: History of hyperlipidemia, high cholesterol, hypertension, bipolar disorder, schizophrenia and multiple episodes of hyponatremia secondary to polydipsia. PAST SURGICAL HISTORY: The patient has had a history of tonsillectomy and nasal surgery. SOCIAL HISTORY: He denies any alcohol use, drug use. He currently lives with his parents. Denies any smoking history. He is a full code. FAMILY HISTORY: No history of heart disease or cancer. ALLERGIES: NO KNOWN DRUG ALLERGIES. MEDICATIONS: 1. He is on simvastatin 20 mg daily. 2. Lisinopril 10 mg daily. 3. He is also on Cogentin 1 p.o. t.i.d. 4. He is also on Depakote 500 mg b.i.d. 5. He is also on p.r.n. Tylenol, regular Tylenol use. REVIEW OF SYSTEMS: All negative except for the ones mentioned above in the HPI. PHYSICAL EXAMINATION: VITAL SIGNS: As of the following; temperature 97.7, 61, 20, 99% on room air, 134/85. GENERAL: He is awake, alert, and oriented x3. Does not appear in distress. HEENT: Normocephalic, atraumatic. No lymphadenopathy noted. Pupils are equal reactive to light. CV: S1 and S2 present. No murmurs, rubs, or gallops. LUNG: Clear to auscultation. No rhonchi. No wheezes noted. ABDOMEN: Obese. Bowel sounds are present x2. No pain upon palpation. EXTREMITIES: No edema pedal pulses are present x2. NEUROVASCULAR: No focal deficits noted. SKIN: No cuts, lesions or bruises noted. LABORATORY DATA: Sodium of 120, potassium of 3.0, BUN of 11, creatinine of 0.94. His CK was 1391. CBC: WBCs of 14.2, hemoglobin of 13.3, hematocrit of 36.6, platelets of 228. His urine was negative. He did not have a chest x-ray, I have ordered and it is pending. ASSESSMENT AND PLAN: The patient is a 37-year-old male who presents to the hospital with increased thirst. 1. Hyponatremia, most likely secondary to polydipsia. His serum osmolality and urine osmolality, and urine sodium are pending. The patient had multiple admissions in the past to cause excessive drinking due to his underlying bipolar and schizophrenia. I will restrict his fluid to 1000 mL per day. However, he did receive some normal saline in the ER. I will consult Nephrology for further management. 2. Elevated CK, mild. I will hold off his simvastatin and repeat a CK level in the morning. The patient denies any falls. 3. History of bipolar disorder and schizophrenia. We will continue his Depakote. I will check a Depakote level. 4. Deep venous prophylaxis. We will put the patient on some sequential compression devices or heparin subcutaneous. 5. Hypokalemia. I will replace his potassium and check another BMP later on today. Job ID: [id number]
--- NOTE | 2018-09-13 07:55 | RAD ---
XR Chest 1 View HISTORY: Leukocytosis COMPARISON: 04/30/2017 FINDINGS: The heart size is prominent. The lungs are well expanded without focal areas of consolidati on, pneumothorax or pleural effusions. There is no evidence of roberto pulmonary edema. IMPRESSION: No radiographic evidence of acute cardiopulmonary process.
[2018-09-13] MEDS: Enoxaparin Sodium 40 MG/0.4 ML SYRINGE SC SCH (08:10)
[2018-09-13] MEDS: Lisinopril 20 MG TAB PO SCH (08:10)
[2018-09-13] MEDS: Divalproex Sodium DR 500 MG TAB PO SCH ×2 (08:10→21:50)
[2018-09-13] MEDS: Benztropine 1 MG TAB PO SCH ×3 (08:10→21:50)
[2018-09-13] MEDS: Propranolol 10 MG TAB PO SCH ×3 (08:11→21:51)
[2018-09-13] MEDS ORDERED: Divalproex Sodium DR 500 MG TAB PO SCH (09:00)
[2018-09-13] MEDS ORDERED: Atorvastatin Calcium 20 MG TAB PO SCH (09:00)
--- NOTE | 2018-09-13 10:56 | PDOC.PN ---
- Subjective Encounter Start Date: 09/13/18 Encounter Start Time: 07:20 -: old records requested/rev pt wants to drink water, he feels thirsty, Patient seen and examined. No overnight events - Objective Resuscitation Status - Order Detail: 09/13/18 02:00 Resuscitation Status Routine Resuscitation Status: FULL: Full Resuscitation MAR Reviewed: Yes Vital Signs & Weight: Vital Signs (12 hours) Temp Pulse Resp BP BP Pulse Ox 09/13/18 08:10 135/88 09/13/18 07:20 97.9 F 86 20 135/88 96 09/13/18 04:00 97.5 F L 89 18 144/98 H 99 09/13/18 01:40 97.7 F 61 20 134/85 99 09/13/18 01:35 61 L Weight Weight 265 lb I&O: 09/12/18 09/13/18 09/14/18 06:59 06:59 06:59 Output Total 3850 Balance -3850 Result Diagrams: 09/13/18 03:14 09/13/18 03:14 EKG Reviewed by me: Yes Phys Exam - Physical Examination Constitutional: NAD HEENT: PERRLA, moist MMs, sclera anicteric Neck: no JVD, supple Respiratory: no wheezing, no rales, no rhonchi Cardiovascular: RRR, no significant murmur, no rub Gastrointestinal: soft, non-tender, no distention, positive bowel sounds morbid obesity Musculoskeletal: no edema, pulses present Neurological: non-focal, normal sensation Lymphatic: no nodes Psychiatric: normal affect, A&O x 3 Skin: no rash, normal turgor Dx/Plan (1) Hypokalemia Code(s): E87.6 - HYPOKALEMIA Status: Acute (2) Hypomagnesemia Code(s): E83.42 - HYPOMAGNESEMIA Status: Acute (3) Hyponatremia Code(s): E87.1 - HYPO-OSMOLALITY AND HYPONATREMIA Status: Acute Comment: hypoosmolar, euvolemic hyponatremia likely due to psychogenic polydipsia (4) Rhabdomyolysis Code(s): M62.82 - RHABDOMYOLYSIS Status: Acute (5) Bipolar disorder Code(s): F31.9 - BIPOLAR DISORDER, UNSPECIFIED Status: Chronic Qualifiers: (6) HTN (hypertension) Code(s): I10 - ESSENTIAL (PRIMARY) HYPERTENSION Status: Chronic Qualifiers: (7) Morbid obesity with BMI of 40.0-44.9, adult Code(s): E66.01 - MORBID (SEVERE) OBESITY DUE TO EXCESS CALORIES; Z68.41 - BODY MASS INDEX (BMI) 40.0-44.9, ADULT Status: Chronic - Plan cont current plan of care * continue fluid restriction * replace electrolytes today * repeat labs tomorrow * nephrology has been consulted * medication reviewed as below * symptomatic treatment * expecting discharge tomorrow. Review of Systems - Review of Systems ENT: negative: Ear Pain, Ear Discharge, Nose Pain, Nose Discharge, Nose Congestion, Mouth Pain, Mouth Swelling, Throat Pain, Throat Swelling, Other Respiratory: negative: Cough, Dry, Shortness of Breath, Hemoptysis, SOB with Excertion, Pleuritic Pain, Sputum, Wheezing Cardiovascular: negative: chest pain, palpitations, orthopnea, paroxysmal nocturnal dyspnea, edema, light headedness, other Gastrointestinal: negative: Nausea, Vomiting, Abdominal Pain, Diarrhea, Constipation, Melena, Hematochezia, Other Genitourinary: negative: Dysuria, Frequency, Incontinence, Hematuria, Retention , Other Musculoskeletal: negative: Neck Pain, Shoulder Pain, Arm Pain, Back Pain, Hand Pain, Leg Pain, Foot Pain, Other Skin: negative: Rash, Lesions, Jaycob, Bruising, Other - Medications/Allergies Allergies/Adverse Reactions: Allergies Allergy/AdvReac Type Severity Reaction Status Date / Time No Known Allergies Allergy Verified 09/13/18 02:02 Medications: Current Medications Acetaminophen (Tylenol) 650 mg PO Q4H PRN PRN Reason: Headache/Fever/Mild Pain (1-3) Benztropine Mesylate (Cogentin) 1 mg PO TID [facility] Last Admin: 09/13/18 08:10 Dose: 1 mg Divalproex Sodium (Depakote) 500 mg PO BID [facility] Last Admin: 09/13/18 08:10 Dose: 500 mg Enoxaparin Sodium (Lovenox) 40 mg SC 0900 [facility] Last Admin: 09/13/18 08:10 Dose: 40 mg Potassium Chloride 10 meq/ (Device) 100 mls @ 100 mls/hr IVPB NOW [facility] Stop: 09/14/18 01:59 Last Admin: 09/13/18 03:07 Dose: 100 mls Lisinopril (Zestril) 20 mg PO DAILY [facility] Last Admin: 09/13/18 08:10 Dose: 20 mg Propranolol HCl (Inderal) 10 mg PO TID [facility] Last Admin: 09/13/18 08:11 Dose: 10 mg Senna/Docusate Sodium (Senokot S) 2 tab PO BID PRN PRN Reason: Constipation
--- NOTE | 2018-09-13 23:16 | CON ---
DATE OF CONSULTATION: CONSULTING PHYSICIAN: Oswaldo Curtis MD REASON FOR CONSULTATION: Hyponatremia. IMPRESSION: Hyponatremia. Based on the urinary chemistry, this is dilutional hyponatremia from psychogenic polydipsia. PLAN: Restrict free water intake. This is going to be somewhat challenging for this patient, but over time, hopefully, patient will be able to overcome the psychogenic polydipsia, which may have something to do with his psychiatric state plus or minus psychotropic medications. HISTORY: That of a 37-year-old gentleman who presented to the hospital with complaint of thirst, however, clinical evaluation revealed the patient with hyponatremia with sodium of 120. As a result of these findings, decision has been taken to involve Renal in the management of this case. Renal investigation did reveal this to be more or less in the context of dilutional hyponatremia from excessive water drinking as evidenced by urine sodium that is low as well as urine osmolality that is low. PAST MEDICAL HISTORY: Dyslipidemia, hypertension, bipolar disorder, and schizophrenia. SOCIAL HISTORY: No alcohol. No tobacco. No illicit drug use. ALLERGIES: NO KNOWN DRUG ALLERGIES. FAMILY HISTORY: Not significantly related to present illness. MEDICATIONS: Reviewed and as documented on [employer]. REVIEW OF SYSTEMS: As documented in the body of the history. All other systems were reviewed and found not to be significantly related to present illness. PHYSICAL EXAMINATION: GENERAL: The patient was found not to be in any obvious distress. VITAL SIGNS: Noted with the following vital signs; afebrile, temperature 97.8, pulse 81, respiratory rate of 20, O2 saturations of 96% with blood pressure 102/68. HEENT: Unremarkable. CARDIOVASCULAR: First and second heart sounds were heard. RESPIRATORY: Clear to auscultation. DIGESTIVE: Revealed a benign abdomen with positive bowel sounds. EXTREMITIES: No peripheral edema. SKIN: No new gross rash. LYMPHATICS: No peripheral lymphadenopathy. SUMMARY: In summary, this is a 37-year-old gentleman who presented with complaint of thirst, noted to be severely hyponatremic in the context of psychogenic polydipsia. Thank you for this consultation. We will follow with you. Job ID: [id number]
[2018-09-14 05:22] LABS: #Basophils 0.1 thou/uL (0.0-0.2); #Eosinphils 0.3 thou/uL (0.0-0.7); #Lymphocytes 3.6 thou/uL (1.20-3.40); #Neutrophils 2.7 thou/uL (1.40-6.50); %Basophils 0.9 % (0.0-1.0); %Eosinophils 3.4 % (0.0-10.0); %Lymphocytes 46.8 % (21.0-51.0); %Monocytes 12.8 % (0.0-10.0); %Neutrophils 36.1 % (42.0-75.0); Hemoglobin 13.6 g/dL (14.0-18.0); Mean Corpuscular HGB CONC 34.4 g/dL (32.0-36.0); Mean Corpuscular Hemoglobin 30.4 pg (27.0-31.0); Mean Corpuscular Volume 88.3 fL (78.0-98.0); Mean Platelet Volume 7.5 fL (7.4-10.4); Platelet Count 232 thou/uL (130-400); RBC Distribution Width 12.1 % (11.5-14.5); Red Blood Cell (RBC) Count 4.49 mill/uL (4.70-6.10); White Blood Cell (WBC) Count 7.6 thou/uL (4.8-10.8)
[2018-09-14 05:42] LABS: Anion Gap 13 mmol/L (10-20); BUN (Urea Nitrogen) 11 mg/dL (8.9-20.6); CK (CPK) 1662 U/L (30-200); Calc. Creatinine Clearance 158 mL/min (70-130); Calcium 9.4 mg/dL (7.8-10.44); Carbon Dioxide 22 mmol/L (22-29); Chloride 108 mmol/L (98-107); Estimated GFR-MDRD 76; Glucose 80 mg/dL (70-105); Magnesium 2.6 mg/dL (1.6-2.6); Potassium 4.2 mmol/L (3.5-5.1); Sodium 139 mmol/L (136-145)
[2018-09-14] MEDS: Potassium Chloride 10 MEQ in Premix Bag 1 BAG IVPB SCH (08:18)
[2018-09-14] MEDS: Benztropine 1 MG TAB PO SCH (09:04)
[2018-09-14] MEDS: Divalproex Sodium DR 500 MG TAB PO SCH (09:05)
[2018-09-14] MEDS: Lisinopril 20 MG TAB PO SCH (09:05)
[2018-09-14] MEDS: Propranolol 10 MG TAB PO SCH (09:05)
[2018-09-14] MEDS: Enoxaparin Sodium 40 MG/0.4 ML SYRINGE SC SCH (09:06)
[2018-09-14 11:47] VITALS: BP 120/73; TEMP 97.4
--- NOTE | 2018-09-14 12:51 | PDOC.EVN ---
Event Note - Event Note Event Note: DC SUMMARY #[id number]
--- NOTE | 2018-09-15 04:03 | DIS ---
DATE OF ADMISSION: 09/13/2018 DATE OF DISCHARGE: 09/14/2018 ADMITTING DIAGNOSIS: Hyponatremia. DISCHARGE DIAGNOSES: Hyponatremia secondary to polydipsia, bipolar disorder, as well as mood disorder. HOSPITAL COURSE: This is a 37-year-old male admitted to Internal Medicine Team, having been found to have a low sodium of 124. The patient was admitted to Internal Medicine Team followed by Nephrology as well. The patient was found to have polydipsia as a cause of his blood pressure based on lab results, as well as the patient's condition. The patient's sodium was slowly raised by 10 mEq over 24 hours for 48 hours to 139 at the time of discharge. Condition was stable. Denied any complaints or symptoms. No nausea, vomiting, diarrhea, constipation, chest pain, fevers, chills, or shortness of breath. The patient was advised to stop drinking so much water and only drink water when he is thirsty. CONDITION: Stable. Otherwise, was to follow up with PCP within 1 week. Plan was discussed with the patient at length. He understood and agreed to this plan. DISPOSITION: Home. FOLLOWUP: Follow up with PCP in 1 week. MEDICATIONS: See MAR. ACTIVITY: As tolerated with assistance as needed. DIET: Low-fat, low-calorie, high-fiber diet. PROGNOSIS: Good. Once again, case and plan discussed with the patient at length. He understood and agreed with this plan. Job ID: [id number]
== END 2018-09-14 13:52 | disposition home or self-care (01) | DRG 641 ==
LOC: ERS 21:21 → 2SE 09-13 01:22 → OBSVTOIN 09-13 01:22
PROVIDERS: ADMIT Internal Medicine; ATTEND Internal Medicine
DX: E87.1 Hypo-osmolality and hyponatremia (principal); M62.82 Rhabdomyolysis; Z68.41 Body mass index [BMI] 40.0-44.9, adult; R63.1 Polydipsia; E87.6 Hypokalemia; E78.5 Hyperlipidemia, unspecified; I10 Essential (primary) hypertension; F31.9 Bipolar disorder, unspecified; F20.9 Schizophrenia, unspecified; E83.42 Hypomagnesemia; E66.01 Morbid (severe) obesity due to excess calories; Z90.89 Acquired absence of other organs
CPT/HCPCS: 36415; 36416; 71045; 80048; 80053; 80164; 80306; 80307; 81003; 82550; 83036; 83690; 83735; 83930; 83935; 84300; 84443; 85025; 93005; J1650; J2060; J3475; J3480

== ENCOUNTER 2020-01-17 00:20 | Emergency (ER) | payer OTHER ==
[2020-01-17 00:55] LABS: #Basophils 0.1 thou/uL (0.0-0.2); #Eosinphils 0.4 thou/uL (0.0-0.7); #Lymphocytes 3.8 thou/uL (1.20-3.40); #Monocytes 1.2 thou/uL (0.11-0.59); #Neutrophils 6.6 thou/uL (1.40-6.50); %Basophils 0.8 % (0.0-1.0); %Eosinophils 3.7 % (0.0-10.0); %Monocytes 10.1 % (0.0-10.0); %Neutrophils 54.4 % (42.0-75.0); Mean Corpuscular Hemoglobin 30.5 pg (27.0-31.0); Mean Platelet Volume 7.7 fL (7.4-10.4); Platelet Count 229 thou/uL (130-400); RBC Distribution Width 11.4 % (11.5-14.5); Red Blood Cell (RBC) Count 4.59 mill/uL (4.70-6.10); White Blood Cell (WBC) Count 12.1 thou/uL (4.8-10.8)
[2020-01-17 00:59] LABS: Bilirubin Negative (Negative); Blood, Urine Negative (Negative); Clarity Clear (Clear); Glucose, Urine (Dipstick) Normal (Negative); Ketone, Urine Negative (Negative); Leukocyte Negative Leu/uL (Negative); Nitrite Negative (Negative); Protein, Urine (Dipstick) Negative (Neg-Trace); Specific Gravity, Urine 1.001 (1.002-1.036); Urobilinogen Normal mg/dL (Less than 2)
[2020-01-17 01:14] LABS: Anion Gap 13 mmol/L (10-20); BUN (Urea Nitrogen) 6 mg/dL (8.9-20.6); Calc. Creatinine Clearance 0 mL/min (70-130); Calcium 8.5 mg/dL (7.8-10.44); Carbon Dioxide 24 mmol/L (22-29); Chloride 94 mmol/L (98-107); Estimated GFR-MDRD Greater than 90; Glucose 98 mg/dL (70-105); Magnesium 1.4 mg/dL (1.6-2.6); Potassium 3.1 mmol/L (3.5-5.1); Sodium 128 mmol/L (136-145)
[2020-01-17] MEDS ORDERED: Potassium Chloride 20 MEQ TAB ONE (01:23)
[2020-01-17] MEDS ORDERED: Magnesium Citrate 300 ML BOT ONE (01:23)
[2020-01-17] MEDS ORDERED: Magnesium Oxide 400 MG TAB PO SCH (01:30)
== END 2020-01-17 01:38 | disposition home or self-care (01) ==
LOC: ERS 00:20
DX: E87.6 Hypokalemia (principal); E87.1 Hypo-osmolality and hyponatremia; E78.5 Hyperlipidemia, unspecified; I10 Essential (primary) hypertension; E78.00 Pure hypercholesterolemia, unspecified; F41.9 Anxiety disorder, unspecified; F31.9 Bipolar disorder, unspecified
CPT/HCPCS: 80048; 81003; 83735; 85025; 93005

== ENCOUNTER 2021-06-17 16:33 | Inpatient (IN) | payer MEDICARE, MEDICAID ==
[2021-06-17 17:19] LABS: #Basophils 0.1 thou/uL (0.0-0.2); #Eosinphils 0.1 thou/uL (0.0-0.7); #Lymphocytes 2.9 thou/uL (1.20-3.40); #Monocytes 0.9 thou/uL (0.11-0.59); #Neutrophils 5.1 thou/uL (1.40-6.50); %Basophils 0.8 % (0.0-1.0); %Eosinophils 1.4 % (0.0-10.0); %Lymphocytes 31.7 % (21.0-51.0); %Monocytes 10.3 % (0.0-10.0); %Neutrophils 55.8 % (42.0-75.0); Mean Corpuscular Hemoglobin 29.8 pg (27.0-31.0); Mean Corpuscular Volume 87.8 fL (78.0-98.0); Platelet Count 214 thou/uL (130-400); RBC Distribution Width 11.7 % (11.5-14.5); Red Blood Cell (RBC) Count 4.38 mill/uL (4.70-6.10); White Blood Cell (WBC) Count 9.2 thou/uL (4.8-10.8)
[2021-06-17 17:39] LABS: Bilirubin Negative (Negative); Blood, Urine Negative (Negative); Clarity Clear (Clear); Glucose, Urine (Dipstick) Normal (Negative); Ketone, Urine Negative (Negative); Leukocyte Negative Leu/uL (Negative); Nitrite Negative (Negative); Protein, Urine (Dipstick) Negative (Neg-Trace); Specific Gravity, Urine 1.002 (1.002-1.036); Urobilinogen Normal mg/dL (Less than 2); pH, Urine 6.5 (5.0-9.0)
[2021-06-17 17:46] LABS: Amphetamine Not Detected (NotDetected); Barbiturates Screen Not Detected (NotDetected); Benzodiazepine Screen Not Detected (NotDetected); Cocaine Metabolite Screen Not Detected (NotDetected); Methadone Not Detected (NotDetected); Methamphetamine Not Detected (NotDetected); Opiate Screen Not Detected (NotDetected); Oxycodone Screen Not Detected (NotDetected); Phencyclidine (PCP) Not Detected (NotDetected); THC/Cannabinoid Screen Not Detected (NotDetected); Tricyclic Screen Not Detected (NotDetected)
[2021-06-17 17:53] LABS: ALT (SGPT) 36 U/L (8-55); AST (SGOT) 31 U/L (5-34); Albumin 4.3 g/dL (3.5-5.0); Alkaline Phosphatase 52 U/L (40-110); Anion Gap 14 mmol/L (10-20); BUN (Urea Nitrogen) 9 mg/dL (8.9-20.6); Bilirubin, Total 0.7 mg/dL (0.2-1.2); Calc. Creatinine Clearance 0 mL/min (70-130); Calcium 8.8 mg/dL (7.8-10.44); Carbon Dioxide 22 mmol/L (22-29); Chloride 88 mmol/L (98-107); Globulin 2.3 g/dL (2.4-3.5); Glucose 99 mg/dL (70-105); Potassium 3.2 mmol/L (3.5-5.1); Protein, Total 6.6 g/dL (6.0-8.3); Sodium 121 mmol/L (136-145)
[2021-06-17] MEDS ORDERED: Lorazepam 2 MG/ML VIAL ONE (18:14)
[2021-06-17] MEDS ORDERED: Potassium Chloride 20 MEQ TAB ONE (19:40)
[2021-06-17] MEDS ORDERED: Potassium Chloride 20 MEQ TAB PO SCH (19:45)
[2021-06-17] MEDS ORDERED: Cyclobenzaprine 10 MG TAB PO SCH (19:45)
[2021-06-17] MEDS ORDERED: Ondansetron PF 4 MG/2 ML Vial IVP PRN (19:52)
[2021-06-17] MEDS ORDERED: Acetaminophen 650 MG Suppository PR PRN (19:52)
[2021-06-17] MEDS ORDERED: Acetaminophen 325 MG TAB PO PRN (19:52)
[2021-06-17] MEDS ORDERED: Ondansetron ODT 4 MG TAB PO PRN (19:52)
[2021-06-17 20:17] LABS: Phosphorus 2.5 mg/dL (2.3-4.7)
[2021-06-17 20:21] LABS: Anion Gap 13 mmol/L (10-20); BUN (Urea Nitrogen) 8 mg/dL (8.9-20.6); Calc. Creatinine Clearance 0 mL/min (70-130); Calcium 8.8 mg/dL (7.8-10.44); Carbon Dioxide 22 mmol/L (22-29); Chloride 91 mmol/L (98-107); Glucose 87 mg/dL (70-105); Magnesium 1.4 mg/dL (1.6-2.6); Sodium 123 mmol/L (136-145)
[2021-06-17] MEDS ORDERED: Magnesium Sulfate 4 GM in Sodium Chloride 0.9% 250 ML 250 ML IVPB SCH (21:00)
[2021-06-17] MEDS ORDERED: Magnesium 2 GM/50 ML BAG (IN WATER) ONE (21:19)
[2021-06-17] MEDS ORDERED: Cyclobenzaprine 10 MG TAB ONE (21:19)
[2021-06-17] MEDS ORDERED: Electrolyte Replacement Protocol 1 EACH FS SCH (21:30)
[2021-06-17] MEDS: Potassium Chloride 20 MEQ TAB PO SCH ×2 (21:40→23:58)
[2021-06-17 23:33] VITALS: BMI 38.9
[2021-06-18] MEDS ORDERED: Dextrose 50% Abboject 50 ML SYRINGE SLOW IVP PRN (01:42)
[2021-06-18] MEDS ORDERED: HumaLOG 300 UNITS/3 ML VIAL SC PRN ×2 (01:42)
[2021-06-18] MEDS ORDERED: Dextrose 5% in Water 1,000 ML IV PRN (01:42)
[2021-06-18 02:18] LABS: Anion Gap 10 mmol/L (10-20); BUN (Urea Nitrogen) 9 mg/dL (8.9-20.6); Calc. Creatinine Clearance 165 mL/min (70-130); Calcium 9.2 mg/dL (7.8-10.44); Carbon Dioxide 23 mmol/L (22-29); Chloride 102 mmol/L (98-107); Glucose 93 mg/dL (70-105); Sodium 131 mmol/L (136-145)
[2021-06-18 07:01] LABS: Anion Gap 12 mmol/L (10-20); BUN (Urea Nitrogen) 8 mg/dL (8.9-20.6); Calc. Creatinine Clearance 157 mL/min (70-130); Calcium 9.5 mg/dL (7.8-10.44); Carbon Dioxide 23 mmol/L (22-29); Chloride 105 mmol/L (98-107); Glucose 89 mg/dL (70-105); Potassium 4.8 mmol/L (3.5-5.1); Sodium 135 mmol/L (136-145)
[2021-06-18 07:02] LABS: Magnesium 2.7 mg/dL (1.6-2.6)
[2021-06-18] MEDS: Enoxaparin Sodium 40 MG/0.4 ML SYRINGE SC SCH (09:08)
[2021-06-18] MEDS ORDERED: Dextrose 5% in Water 1,000 ML IV SCH (09:15)
[2021-06-18 13:33] LABS: Anion Gap 11 mmol/L (10-20); BUN (Urea Nitrogen) 10 mg/dL (8.9-20.6); Calc. Creatinine Clearance 141 mL/min (70-130); Calcium 9.6 mg/dL (7.8-10.44); Carbon Dioxide 24 mmol/L (22-29); Chloride 104 mmol/L (98-107); Glucose 122 mg/dL (70-105); Potassium 4.4 mmol/L (3.5-5.1); Sodium 135 mmol/L (136-145)
[2021-06-18 16:33] LABS: Potassium 4.1 mmol/L (3.5-5.1)
[2021-06-18 19:22] LABS: SARS-CoV-2 PCR by NAA Not Detected (NotDetected)
[2021-06-18 19:37] LABS: Anion Gap 12 mmol/L (10-20); BUN (Urea Nitrogen) 11 mg/dL (8.9-20.6); Calc. Creatinine Clearance 151 mL/min (70-130); Calcium 9.5 mg/dL (7.8-10.44); Carbon Dioxide 23 mmol/L (22-29); Chloride 106 mmol/L (98-107); Glucose 99 mg/dL (70-105); Potassium 4.2 mmol/L (3.5-5.1); Sodium 137 mmol/L (136-145)
[2021-06-19 05:05] LABS: Anion Gap 10 mmol/L (10-20); BUN (Urea Nitrogen) 10 mg/dL (8.9-20.6); Calc. Creatinine Clearance 151 mL/min (70-130); Calcium 9.5 mg/dL (7.8-10.44); Carbon Dioxide 24 mmol/L (22-29); Chloride 106 mmol/L (98-107); Glucose 89 mg/dL (70-105); Potassium 4.8 mmol/L (3.5-5.1); Sodium 135 mmol/L (136-145)
[2021-06-19] MEDS: Enoxaparin Sodium 40 MG/0.4 ML SYRINGE SC SCH (08:19)
[2021-06-19 11:39] VITALS: BP 135/83; TEMP 98.6
== END 2021-06-19 13:25 | disposition home or self-care (01) | DRG 641 ==
LOC: ERS 16:33 → ERHOLD 19:37 → 2NO 22:42
PROVIDERS: ADMIT Student in an Organized Health Care Education/Training Program; ATTEND Internal Medicine
DX: R63.1 Polydipsia (principal); E87.1 Hypo-osmolality and hyponatremia; E78.5 Hyperlipidemia, unspecified; E78.00 Pure hypercholesterolemia, unspecified; I10 Essential (primary) hypertension; F41.9 Anxiety disorder, unspecified; F31.9 Bipolar disorder, unspecified; E66.01 Morbid (severe) obesity due to excess calories; E11.9 Type 2 diabetes mellitus without complications; F20.9 Schizophrenia, unspecified; F54 Psychological and behavioral factors associated with disorders or diseases classified elsewhere; Z20.822 Contact with and (suspected) exposure to COVID-19; Z90.49 Acquired absence of other specified parts of digestive tract; Z79.899 Other long term (current) drug therapy; Z68.39 Body mass index [BMI] 39.0-39.9, adult
CPT/HCPCS: 36415; 36416; 80048; 80053; 80306; 81003; 83605; 83735; 83930; 83935; 84100; 84300; 85025; 93005; 93010; 96374; J1650; J2060; J2597; J3475; J7050; J7070; U0003; U0005

== ENCOUNTER 2021-10-15 16:02 | Observation (INO) | payer MEDICARE, MEDICAID ==
[2021-10-15 16:34] LABS: #Eosinphils 0.1 thou/uL (0.0-0.7); #Lymphocytes 2.8 thou/uL (1.20-3.40); #Monocytes 1.1 thou/uL (0.11-0.59); #Neutrophils 5.8 thou/uL (1.40-6.50); %Basophils 0.4 % (0.0-1.0); %Eosinophils 0.9 % (0.0-10.0); %Lymphocytes 28.8 % (21.0-51.0); %Monocytes 11.3 % (0.0-10.0); %Neutrophils 58.5 % (42.0-75.0); Hemoglobin 13.1 g/dL (14.0-18.0); Mean Corpuscular HGB CONC 34.5 g/dL (32.0-36.0); Mean Corpuscular Hemoglobin 30.2 pg (27.0-31.0); Mean Corpuscular Volume 87.6 fL (78.0-98.0); Platelet Count 218 thou/uL (130-400); RBC Distribution Width 11.4 % (11.5-14.5); Red Blood Cell (RBC) Count 4.34 mill/uL (4.70-6.10); White Blood Cell (WBC) Count 9.8 thou/uL (4.8-10.8)
[2021-10-15 16:53] LABS: ALT (SGPT) 16 U/L (8-55); AST (SGOT) 23 U/L (5-34); Albumin 4.1 g/dL (3.5-5.0); Alkaline Phosphatase 51 U/L (40-110); Anion Gap 15 mmol/L (10-20); BUN (Urea Nitrogen) 7 mg/dL (8.9-20.6); Bilirubin, Total 0.5 mg/dL (0.2-1.2); Calc. Creatinine Clearance 0 mL/min (70-130); Calcium 8.6 mg/dL (7.8-10.44); Carbon Dioxide 21 mmol/L (22-29); Chloride 91 mmol/L (98-107); Estimated GFR 112; Globulin 2.8 g/dL (2.4-3.5); Glucose 93 mg/dL (70-105); Magnesium 1.3 mg/dL (1.6-2.6); Protein, Total 6.9 g/dL (6.0-8.3); Sodium 124 mmol/L (136-145)
[2021-10-15 16:58] LABS: Potassium 2.8 mmol/L (3.5-5.1)
[2021-10-15] MEDS ORDERED: Lorazepam 2 MG/ML VIAL ONE (17:05)
[2021-10-15] MEDS ORDERED: Potassium Chloride 20 MEQ TAB ONE (17:05)
[2021-10-15 17:31] LABS: Bilirubin Negative (Negative); Blood, Urine Negative (Negative); Clarity Clear (Clear); Glucose, Urine (Dipstick) Normal (Negative); Ketone, Urine Negative (Negative); Leukocyte Negative Leu/uL (Negative); Nitrite Negative (Negative); Protein, Urine (Dipstick) Negative (Neg-Trace); Specific Gravity, Urine 1.002 (1.002-1.036); Urobilinogen Normal mg/dL (Less than 2)
[2021-10-15] MEDS ORDERED: Zolpidem Tartrate 5 MG TAB PO PRN (20:10)
[2021-10-15] MEDS ORDERED: Bisacodyl 5 MG TAB PO PRN (20:10)
[2021-10-15] MEDS ORDERED: Dextrose 50% Abboject 50 ML SYRINGE SLOW IVP PRN (20:10)
[2021-10-15] MEDS ORDERED: Dextrose 5% in Water 1,000 ML IV PRN (20:10)
[2021-10-15] MEDS ORDERED: HumaLOG 300 UNITS/3 ML VIAL SC PRN ×2 (20:10)
[2021-10-15] MEDS ORDERED: Acetaminophen 325 MG TAB PO PRN (20:10)
[2021-10-15] MEDS ORDERED: HYDROcodone/Acetaminophen 5/325 mg Tablet PO PRN (20:10)
[2021-10-15 21:04] LABS: Anion Gap 15 mmol/L (10-20); BUN (Urea Nitrogen) 7 mg/dL (8.9-20.6); Calc. Creatinine Clearance 0 mL/min (70-130); Calcium 8.5 mg/dL (7.8-10.44); Carbon Dioxide 21 mmol/L (22-29); Chloride 98 mmol/L (98-107); Estimated GFR 113; Glucose 82 mg/dL (70-105); Potassium 3.3 mmol/L (3.5-5.1); Sodium 131 mmol/L (136-145); Uric Acid 6.7 mg/dL (3.5-7.2)
[2021-10-15 21:30] VITALS: BMI 36.9
[2021-10-15] MEDS: Magnesium 2 GM/50 ML(in water) 2 GM in Premix Bag 1 BAG IVPB SCH ×2 (21:38→22:44)
[2021-10-15] MEDS: Benztropine 1 MG TAB PO SCH (21:38)
[2021-10-15] MEDS: Divalproex Sodium DR 500 MG TAB PO SCH (21:39)
[2021-10-15] MEDS: Magnesium Oxide 400 MG TAB PO SCH (21:40)
[2021-10-15] MEDS: Famotidine 20 MG TAB PO SCH (21:40)
[2021-10-15] MEDS: Potassium Chloride 20 MEQ TAB PO SCH (21:40)
[2021-10-15] MEDS: Potassium Chloride 20 MEQ in Lactated Ringer's 1,000 ML IV SCH (22:46)
[2021-10-15 23:13] LABS: Potassium, Urine Less than 10.0 mmol/L; Sodium, Urine 23 mmol/L (Not Available)
[2021-10-16] MEDS: Potassium Chloride 20 MEQ TAB PO SCH (00:54)
[2021-10-16 04:59] LABS: #Eosinphils 0.1 thou/uL (0.0-0.7); #Lymphocytes 2.2 thou/uL (1.20-3.40); #Monocytes 0.8 thou/uL (0.11-0.59); %Basophils 0.2 % (0.0-1.0); %Lymphocytes 36.5 % (21.0-51.0); %Monocytes 12.9 % (0.0-10.0); %Neutrophils 49.5 % (42.0-75.0); Mean Corpuscular HGB CONC 34.3 g/dL (32.0-36.0); Mean Corpuscular Hemoglobin 30.3 pg (27.0-31.0); Mean Corpuscular Volume 88.3 fL (78.0-98.0); Mean Platelet Volume 6.9 fL (7.4-10.4); Platelet Count 243 thou/uL (130-400); RBC Distribution Width 11.7 % (11.5-14.5); Red Blood Cell (RBC) Count 4.64 mill/uL (4.70-6.10); White Blood Cell (WBC) Count 6.1 thou/uL (4.8-10.8)
[2021-10-16 05:23] LABS: ALT (SGPT) 20 U/L (8-55); AST (SGOT) 21 U/L (5-34); Alkaline Phosphatase 52 U/L (40-110); Anion Gap 12 mmol/L (10-20); BUN (Urea Nitrogen) 6 mg/dL (8.9-20.6); Bilirubin, Total 0.6 mg/dL (0.2-1.2); Calc. Creatinine Clearance 155 mL/min (70-130); Calcium 9.2 mg/dL (7.8-10.44); Carbon Dioxide 23 mmol/L (22-29); Chloride 107 mmol/L (98-107); Estimated GFR 99; Glucose 95 mg/dL (70-105); Magnesium 2.7 mg/dL (1.6-2.6); Potassium 4.7 mmol/L (3.5-5.1); Sodium 137 mmol/L (136-145)
[2021-10-16] MEDS: clonazePAM 0.5 MG TAB PO PRN ×2 (07:45→19:30)
[2021-10-16] MEDS: Enoxaparin Sodium 40 MG/0.4 ML SYRINGE SC SCH (08:51)
[2021-10-16] MEDS: Benztropine 1 MG TAB PO SCH ×2 (08:52→20:51)
[2021-10-16] MEDS: Divalproex Sodium DR 500 MG TAB PO SCH ×2 (08:54→20:51)
[2021-10-16] MEDS: Losartan 25 MG TAB PO SCH (08:54)
[2021-10-16] MEDS: metFORMIN 500 MG TAB PO SCH (08:54)
[2021-10-16] MEDS: Famotidine 20 MG TAB PO SCH ×2 (08:55→20:51)
[2021-10-16] MEDS: Cholecalciferol 1,000 UNITS (25 MCG) TAB PO SCH (08:55)
[2021-10-16] MEDS: Magnesium Oxide 400 MG TAB PO SCH ×2 (08:56→20:51)
[2021-10-16] MEDS: Atorvastatin Calcium 20 MG TAB PO SCH (08:56)
[2021-10-16] MEDS: Potassium Chloride 20 MEQ in Lactated Ringer's 1,000 ML IV SCH (09:25)
[2021-10-16] MEDS ORDERED: risperiDONE 1 MG TAB PO SCH (12:00)
[2021-10-16 12:54] LABS: Anion Gap 16 mmol/L (10-20); BUN (Urea Nitrogen) 8 mg/dL (8.9-20.6); Calc. Creatinine Clearance 126 mL/min (70-130); Calcium 10.3 mg/dL (7.8-10.44); Carbon Dioxide 23 mmol/L (22-29); Chloride 106 mmol/L (98-107); Estimated GFR 78; Glucose 105 mg/dL (70-105); Potassium 4.5 mmol/L (3.5-5.1); Sodium 140 mmol/L (136-145)
[2021-10-17 05:38] LABS: Anion Gap 13 mmol/L (10-20); BUN (Urea Nitrogen) 10 mg/dL (8.9-20.6); Calc. Creatinine Clearance 123 mL/min (70-130); Calcium 9.7 mg/dL (7.8-10.44); Carbon Dioxide 27 mmol/L (22-29); Chloride 106 mmol/L (98-107); Estimated GFR 76; Glucose 87 mg/dL (70-105); Magnesium 2.5 mg/dL (1.6-2.6); Potassium 4.8 mmol/L (3.5-5.1); Sodium 141 mmol/L (136-145)
[2021-10-17] MEDS: Atorvastatin Calcium 20 MG TAB PO SCH (08:01)
[2021-10-17] MEDS: Benztropine 1 MG TAB PO SCH (08:01)
[2021-10-17] MEDS: Cholecalciferol 1,000 UNITS (25 MCG) TAB PO SCH (08:03)
[2021-10-17] MEDS: Enoxaparin Sodium 40 MG/0.4 ML SYRINGE SC SCH (08:04)
[2021-10-17] MEDS: Divalproex Sodium DR 500 MG TAB PO SCH (08:04)
[2021-10-17] MEDS: Magnesium Oxide 400 MG TAB PO SCH (08:05)
[2021-10-17] MEDS: metFORMIN 500 MG TAB PO SCH (08:05)
[2021-10-17] MEDS: Famotidine 20 MG TAB PO SCH (08:05)
[2021-10-17] MEDS: Losartan 25 MG TAB PO SCH (08:05)
[2021-10-17 08:34] VITALS: TEMP 98
[2021-10-17] MEDS ORDERED: risperiDONE 1 MG TAB PO SCH (09:00)
[2021-10-17 12:25] VITALS: BP 122/78
[2021-10-17] MEDS ORDERED: Lorazepam 2 MG/ML VIAL SLOW IVP PRN (12:47)
== END 2021-10-17 16:20 | disposition home or self-care (01) ==
LOC: ERS 16:02 → 2SW 17:43
PROVIDERS: ADMIT Internal Medicine; ATTEND Internal Medicine
DX: E87.1 Hypo-osmolality and hyponatremia (principal); R63.1 Polydipsia; E87.6 Hypokalemia; E11.10 Type 2 diabetes mellitus with ketoacidosis without coma; E83.42 Hypomagnesemia; I10 Essential (primary) hypertension; U07.1 COVID-19; E66.9 Obesity, unspecified; Z68.36 Body mass index [BMI] 36.0-36.9, adult; Z79.84 Long term (current) use of oral hypoglycemic drugs; Z79.899 Other long term (current) drug therapy
CPT/HCPCS: 71045; 80048 ×3; 80053; 81003; 82962 ×3; 83605; 83735 ×3; 83930; 83935; 84133; 84300; 84484; 84550; 85025; 85379; 86140; 87040; 93005; 96374; 99284; U0003; U0005; 36415; 36416; 84443; 96365; 96366; 96367; 96372; 96375; 96376; G0378; J1650; J2060; J3475; J3480; J7120

== ENCOUNTER 2022-11-29 15:35 | Inpatient (IN) | payer OTHER, MEDICAID ==
[2022-11-29 16:05] LABS: Bacteria/HPF None Seen HPF (None Seen); Bilirubin Negative (Negative); Blood, Urine Negative (Negative); CAUTI Indications for Culture Alt mental st,lethar; Clarity Clear (Clear); Glucose, Urine (Dipstick) Normal (Negative); Ketone, Urine Negative (Negative); Leukocyte Negative Leu/uL (Negative); Nitrite Negative (Negative); Protein, Urine (Dipstick) Negative (Neg-Trace); RBC/HPF None Seen HPF (0-3); Specific Gravity, Urine 1.002 (1.002-1.036); Squamous Epithelial None Seen HPF (0-3); Urobilinogen Normal mg/dL (Less than 2); WBC/HPF None Seen HPF (0-3); pH, Urine 6.5 (5.0-9.0)
[2022-11-29 16:09] LABS: Urine Culture Reflex No No
[2022-11-29 16:20] LABS: #Basophils 0.1 thou/uL (0.0-0.2); #Monocytes 1.5 thou/uL (0.11-0.59); #Neutrophils 9.4 thou/uL (1.40-6.50); %Basophils 0.4 % (0.0-1.0); %Eosinophils 0.2 % (0.0-10.0); %Lymphocytes 18.5 % (21.0-51.0); %Monocytes 10.7 % (0.0-10.0); %Neutrophils 69.8 % (42.0-75.0); Hematocrit 35.7 % (42.0-52.0); Mean Corpuscular HGB CONC 36.4 g/dL (32.0-36.0); Mean Corpuscular Volume 82.4 fl (78.0-98.0); Mean Platelet Volume 9.4 fL (7.4-10.4); Platelet Count 219 10x3/uL (130-400); RBC Distribution Width 11.8 % (11.5-14.5); Red Blood Cell (RBC) Count 4.33 mill/uL (4.70-6.10); White Blood Cell (WBC) Count 13.5 10x3/uL (4.8-10.8)
[2022-11-29 16:44] LABS: ALT (SGPT) 45 U/L (8-55); AST (SGOT) 89 U/L (5-34); Albumin 4.3 g/dL (3.5-5.0); Alkaline Phosphatase 53 U/L (40-110); Anion Gap 16 mmol/L (10-20); BUN (Urea Nitrogen) 7 mg/dL (8.9-20.6); Calc. Creatinine Clearance 0 mL/min (70-130); Calcium 8.7 mg/dL (7.8-10.44); Carbon Dioxide 19 mmol/L (22-29); Chloride 91 mmol/L (98-107); Estimated GFR 111; Globulin 2.6 g/dL (2.4-3.5); Glucose 95 mg/dL (70-105); Lipase 14 U/L (8-78); Potassium 3.1 mmol/L (3.5-5.1); Protein, Total 6.9 g/dL (6.0-8.3); Sodium 123 mmol/L (136-145)
[2022-11-29 16:46] LABS: Troponin I Less than 0.010 ng/mL (< 0.028)
[2022-11-29] MEDS ORDERED: Guaifenesin DM 100-10/5 ML UDCUP PO PRN (17:13)
[2022-11-29] MEDS ORDERED: Ondansetron PF 4 MG/2 ML Vial IVP PRN (17:13)
[2022-11-29] MEDS ORDERED: Senokot S 8.6-50 MG TAB PO PRN (17:13)
[2022-11-29] MEDS ORDERED: clonazePAM 0.5 MG TAB PO PRN (17:17)
[2022-11-29] MEDS ORDERED: Potassium Chloride 20 MEQ TAB PO SCH (17:30)
[2022-11-29] MEDS ORDERED: Sodium Bicarb 50 MEQ/50 ML Abboject 8.4% SYRINGE IVP SCH (18:00)
[2022-11-29 20:44] LABS: Potassium 3.2 mmol/L (3.5-5.1); Sodium 124 mmol/L (136-145)
[2022-11-29] MEDS: Famotidine 20 MG TAB PO SCH (21:08)
[2022-11-29] MEDS: Benztropine 1 MG TAB PO SCH (21:08)
[2022-11-29] MEDS: Divalproex Sodium DR 500 MG TAB PO SCH (21:09)
[2022-11-29] MEDS ORDERED: Sodium Bicarb 50 MEQ/50 ML VIAL IVP SCH (21:15)
[2022-11-30 04:07] VITALS: BMI 35.2
[2022-11-30 04:49] LABS: #Eosinphils 0.1 thou/uL (0.0-0.7); #Monocytes 1.3 thou/uL (0.11-0.59); #Neutrophils 3.3 thou/uL (1.40-6.50); %Basophils 0.5 % (0.0-1.0); %Eosinophils 1.3 % (0.0-10.0); %Lymphocytes 43.4 % (21.0-51.0); %Monocytes 15.4 % (0.0-10.0); %Neutrophils 39.2 % (42.0-75.0); Hematocrit 42.8 % (42.0-52.0); Hemoglobin 14.6 g/dL (14.0-18.0); Mean Corpuscular HGB CONC 34.1 g/dL (32.0-36.0); Mean Corpuscular Hemoglobin 29.4 pg (27.0-31.0); Mean Platelet Volume 9.5 fL (7.4-10.4); Platelet Count 255 10x3/uL (130-400); RBC Distribution Width 12.2 % (11.5-14.5); Red Blood Cell (RBC) Count 4.97 mill/uL (4.70-6.10); White Blood Cell (WBC) Count 8.5 10x3/uL (4.8-10.8)
[2022-11-30 05:42] LABS: Mean Corpuscular Volume 86.1 fl (78.0-98.0)
[2022-11-30 06:38] LABS: Anion Gap 14 mmol/L (10-20); BUN (Urea Nitrogen) 7 mg/dL (8.9-20.6); Calc. Creatinine Clearance 132 mL/min (70-130); Carbon Dioxide 25 mmol/L (22-29); Chloride 102 mmol/L (98-107); Estimated GFR 88; Glucose 84 mg/dL (70-105); Potassium 4.1 mmol/L (3.5-5.1); Sodium 137 mmol/L (136-145)
[2022-11-30] MEDS: Divalproex Sodium DR 500 MG TAB PO SCH (08:13)
[2022-11-30] MEDS: Benztropine 1 MG TAB PO SCH (08:13)
[2022-11-30] MEDS: Famotidine 20 MG TAB PO SCH (08:13)
[2022-11-30] MEDS ORDERED: Amlodipine 5 MG TAB PO SCH (09:00)
[2022-11-30] MEDS ORDERED: Lisinopril 20 MG TAB PO SCH (09:00)
[2022-11-30] MEDS ORDERED: Sulfameth/Trimethoprim DS 800-160mg TAB PO SCH (09:00)
[2022-11-30] MEDS ORDERED: metFORMIN 500 MG TAB PO SCH (09:00)
[2022-11-30] MEDS ORDERED: Lisinopril 10 MG TAB PO SCH (09:00)
[2022-11-30] MEDS ORDERED: PALIPERIDONE PALMITATE 156 MG/ML IM SCH ×2 (09:00)
[2022-11-30 12:06] VITALS: BP 121/84; TEMP 98.2
== END 2022-11-30 16:12 | disposition home or self-care (01) | DRG 640 ==
LOC: ERS 15:35 → 2NO 17:08
PROVIDERS: ADMIT Hospitalist; ATTEND Internal Medicine
DX: E87.1 Hypo-osmolality and hyponatremia (principal); G93.41 Metabolic encephalopathy; F20.9 Schizophrenia, unspecified; E78.5 Hyperlipidemia, unspecified; I10 Essential (primary) hypertension; F41.9 Anxiety disorder, unspecified; F31.9 Bipolar disorder, unspecified; R63.1 Polydipsia; E66.01 Morbid (severe) obesity due to excess calories; E87.6 Hypokalemia; E87.20 Acidosis, unspecified; H66.90 Otitis media, unspecified, unspecified ear; Z79.899 Other long term (current) drug therapy; Z68.35 Body mass index [BMI] 35.0-35.9, adult
CPT/HCPCS: 36415; 36416; 70450; 80048; 80053; 81001; 83605; 83690; 84443; 84484; 85025; 87086; 93005; J1650

== ENCOUNTER 2023-01-17 17:16 | Inpatient (IN) | payer OTHER, MEDICAID ==
[2023-01-17 18:08] LABS: #Eosinphils 0.1 thou/uL (0.0-0.7); #Monocytes 1.2 thou/uL (0.11-0.59); #Neutrophils 8.4 thou/uL (1.40-6.50); %Basophils 0.3 % (0.0-1.0); %Eosinophils 0.6 % (0.0-10.0); %Lymphocytes 19.8 % (21.0-51.0); %Monocytes 9.9 % (0.0-10.0); %Neutrophils 68.7 % (42.0-75.0); Hematocrit 35.1 % (42.0-52.0); Mean Corpuscular Hemoglobin 30.9 pg (27.0-31.0); Mean Corpuscular Volume 83.4 fl (78.0-98.0); Mean Platelet Volume 9.4 fL (7.4-10.4); Platelet Count 188 10x3/uL (130-400); RBC Distribution Width 11.6 % (11.5-14.5); Red Blood Cell (RBC) Count 4.21 mill/uL (4.70-6.10); White Blood Cell (WBC) Count 12.3 10x3/uL (4.8-10.8)
[2023-01-17 18:12] LABS: Bacteria/HPF None Seen HPF (None Seen); Bilirubin Negative (Negative); Blood, Urine Negative (Negative); CAUTI Indications for Culture Dysuria,urgency,freq; Clarity Clear (Clear); Glucose, Urine (Dipstick) Normal (Negative); Ketone, Urine Negative (Negative); Leukocyte Negative Leu/uL (Negative); Nitrite Negative (Negative); Protein, Urine (Dipstick) Negative (Neg-Trace); RBC/HPF None Seen HPF (0-3); Specific Gravity, Urine 1.002 (1.002-1.036); Squamous Epithelial None Seen HPF (0-3); Urobilinogen Normal mg/dL (Less than 2); WBC/HPF None Seen HPF (0-3)
[2023-01-17 18:13] LABS: Urine Culture Reflex No No
[2023-01-17 18:33] LABS: ALT (SGPT) 25 U/L (8-55); AST (SGOT) 33 U/L (5-34); Albumin 4.3 g/dL (3.5-5.0); Alkaline Phosphatase 50 U/L (40-110); Anion Gap 15 mmol/L (10-20); BUN (Urea Nitrogen) 8 mg/dL (8.9-20.6); Bilirubin, Total 0.5 mg/dL (0.2-1.2); Calc. Creatinine Clearance 0 mL/min (70-130); Calcium 8.8 mg/dL (7.8-10.44); Carbon Dioxide 21 mmol/L (22-29); Chloride 90 mmol/L (98-107); Estimated GFR 108; Globulin 2.7 g/dL (2.4-3.5); Glucose 104 mg/dL (70-105); Magnesium 1.2 mg/dL (1.6-2.6); Sodium 123 mmol/L (136-145)
[2023-01-17 18:39] LABS: Amphetamine Not Detected (NotDetected); Barbiturates Screen Not Detected (NotDetected); Benzodiazepine Screen Not Detected (NotDetected); Cocaine Metabolite Screen Not Detected (NotDetected); Methadone Not Detected (NotDetected); Methamphetamine Not Detected (NotDetected); Opiate Screen Not Detected (NotDetected); Oxycodone Screen Not Detected (NotDetected); Phencyclidine (PCP) Not Detected (NotDetected); THC/Cannabinoid Screen Not Detected (NotDetected); Tricyclic Screen Not Detected (NotDetected)
[2023-01-17 18:49] LABS: Acetaminophen Less than 10 mcg/mL (10.0-30.0); Alcohol Less than 10.0 mg/dL (Less than 10); Salicylate Less than 8.0 mg/dL (15.0-30.0)
[2023-01-17 20:16] LABS: Anion Gap 15 mmol/L (10-20); BUN (Urea Nitrogen) 7 mg/dL (8.9-20.6); Calc. Creatinine Clearance 0 mL/min (70-130); Calcium 8.8 mg/dL (7.8-10.44); Carbon Dioxide 20 mmol/L (22-29); Chloride 94 mmol/L (98-107); Estimated GFR 111; Glucose 89 mg/dL (70-105); Potassium 3.4 mmol/L (3.5-5.1); Sodium 126 mmol/L (136-145)
[2023-01-17] MEDS ORDERED: Potassium Chloride 20 MEQ TAB ONE (20:22)
[2023-01-17] MEDS ORDERED: Acetaminophen 325 MG TAB PO PRN (22:15)
[2023-01-17] MEDS ORDERED: Calcium Carbonate 500 MG ChewTAB PO PRN (22:15)
[2023-01-17] MEDS ORDERED: Ondansetron ODT 4 MG TAB PO PRN (22:15)
[2023-01-17] MEDS ORDERED: Guaifenesin DM 100-10/5 ML UDCUP PO PRN (22:15)
[2023-01-17] MEDS ORDERED: clonazePAM 0.5 MG TAB PO PRN (22:17)
[2023-01-17 22:20] VITALS: BMI 38.0
[2023-01-17 23:19] LABS: Hemoglobin A1c 5.2 % (4.0-6.0)
[2023-01-18 04:52] LABS: #Neutrophils 4.8 thou/uL (1.40-6.50); %Basophils 0.1 % (0.0-1.0); %Eosinophils 0.3 % (0.0-10.0); %Lymphocytes 26.3 % (21.0-51.0); %Monocytes 12.8 % (0.0-10.0); %Neutrophils 60.2 % (42.0-75.0); Hematocrit 40.7 % (42.0-52.0); Hemoglobin 14.3 g/dL (14.0-18.0); Mean Corpuscular HGB CONC 35.1 g/dL (32.0-36.0); Mean Corpuscular Hemoglobin 29.5 pg (27.0-31.0); Mean Corpuscular Volume 83.9 fl (78.0-98.0); Mean Platelet Volume 9.8 fL (7.4-10.4); Platelet Count 217 10x3/uL (130-400); RBC Distribution Width 11.8 % (11.5-14.5); Red Blood Cell (RBC) Count 4.85 mill/uL (4.70-6.10); White Blood Cell (WBC) Count 7.9 10x3/uL (4.8-10.8)
[2023-01-18 05:22] LABS: Anion Gap 14 mmol/L (10-20); BUN (Urea Nitrogen) 7 mg/dL (8.9-20.6); Calc. Creatinine Clearance 170 mL/min (70-130); Calcium 9.7 mg/dL (7.8-10.44); Carbon Dioxide 20 mmol/L (22-29); Chloride 108 mmol/L (98-107); Estimated GFR 108; Glucose 90 mg/dL (70-105); Potassium 4.2 mmol/L (3.5-5.1); Sodium 138 mmol/L (136-145)
[2023-01-18 07:59] LABS: Anion Gap 14 mmol/L (10-20); BUN (Urea Nitrogen) 8 mg/dL (8.9-20.6); Calc. Creatinine Clearance 148 mL/min (70-130); Calcium 10.4 mg/dL (7.8-10.44); Carbon Dioxide 21 mmol/L (22-29); Chloride 109 mmol/L (98-107); Estimated GFR 92; Glucose 104 mg/dL (70-105); Potassium 4.3 mmol/L (3.5-5.1); Sodium 140 mmol/L (136-145)
[2023-01-18] MEDS: Amlodipine 5 MG TAB PO SCH (08:14)
[2023-01-18] MEDS: metFORMIN 500 MG TAB PO SCH ×3 (08:15→09:41)
[2023-01-18] MEDS: Lisinopril 20 MG TAB PO SCH (08:15)
[2023-01-18] MEDS: Divalproex Sodium DR 500 MG TAB PO SCH ×2 (08:15→21:02)
[2023-01-18] MEDS: Famotidine 20 MG TAB PO SCH ×2 (08:15→21:02)
[2023-01-18] MEDS: Benztropine 1 MG TAB PO SCH ×2 (08:15→21:02)
[2023-01-18] MEDS ORDERED: Dextrose 5% in Water 1,000 ML IV SCH ×5 (08:30→17:50)
[2023-01-18] MEDS: Metoprolol Tartrate 25 MG TAB PO SCH ×2 (09:38→21:02)
[2023-01-18 12:28] LABS: Anion Gap 12 mmol/L (10-20); BUN (Urea Nitrogen) 8 mg/dL (8.9-20.6); Calc. Creatinine Clearance 154 mL/min (70-130); Carbon Dioxide 22 mmol/L (22-29); Chloride 106 mmol/L (98-107); Estimated GFR 96; Glucose 86 mg/dL (70-105); Potassium 4.4 mmol/L (3.5-5.1); Sodium 136 mmol/L (136-145)
[2023-01-18 17:43] LABS: Anion Gap 13 mmol/L (10-20); BUN (Urea Nitrogen) 12 mg/dL (8.9-20.6); Calc. Creatinine Clearance 128 mL/min (70-130); Calcium 9.6 mg/dL (7.8-10.44); Carbon Dioxide 22 mmol/L (22-29); Chloride 102 mmol/L (98-107); Estimated GFR 77; Glucose 111 mg/dL (70-105); Sodium 133 mmol/L (136-145)
[2023-01-18 21:53] LABS: Anion Gap 14 mmol/L (10-20); BUN (Urea Nitrogen) 13 mg/dL (8.9-20.6); Calc. Creatinine Clearance 128 mL/min (70-130); Calcium 9.4 mg/dL (7.8-10.44); Carbon Dioxide 23 mmol/L (22-29); Chloride 100 mmol/L (98-107); Estimated GFR 77; Glucose 91 mg/dL (70-105); Potassium 3.9 mmol/L (3.5-5.1); Sodium 133 mmol/L (136-145)
[2023-01-19 05:11] LABS: Anion Gap 12 mmol/L (10-20); BUN (Urea Nitrogen) 11 mg/dL (8.9-20.6); Calc. Creatinine Clearance 146 mL/min (70-130); Calcium 9.3 mg/dL (7.8-10.44); Carbon Dioxide 24 mmol/L (22-29); Chloride 100 mmol/L (98-107); Estimated GFR 90; Glucose 89 mg/dL (70-105); Potassium 4.1 mmol/L (3.5-5.1); Sodium 132 mmol/L (136-145)
[2023-01-19] MEDS: Amlodipine 5 MG TAB PO SCH (08:41)
[2023-01-19] MEDS: Famotidine 20 MG TAB PO SCH (08:41)
[2023-01-19] MEDS: metFORMIN 500 MG TAB PO SCH (08:41)
[2023-01-19] MEDS: Divalproex Sodium DR 500 MG TAB PO SCH (08:41)
[2023-01-19] MEDS: Lisinopril 20 MG TAB PO SCH (08:41)
[2023-01-19] MEDS: Benztropine 1 MG TAB PO SCH (08:41)
[2023-01-19] MEDS: Metoprolol Tartrate 25 MG TAB PO SCH (08:42)
[2023-01-19 12:05] VITALS: BP 138/80; TEMP 97.8
== END 2023-01-19 15:56 | disposition home or self-care (01) | DRG 641 ==
LOC: ERS 17:16 → 2NO 20:12
PROVIDERS: ADMIT Student in an Organized Health Care Education/Training Program; ATTEND Internal Medicine Critical Care Medicine
DX: E87.1 Hypo-osmolality and hyponatremia (principal); E87.6 Hypokalemia; E83.42 Hypomagnesemia; E78.5 Hyperlipidemia, unspecified; I10 Essential (primary) hypertension; F41.9 Anxiety disorder, unspecified; F31.9 Bipolar disorder, unspecified; R63.1 Polydipsia; F20.9 Schizophrenia, unspecified; E11.9 Type 2 diabetes mellitus without complications; E66.9 Obesity, unspecified; D64.9 Anemia, unspecified; Z79.84 Long term (current) use of oral hypoglycemic drugs; Z68.36 Body mass index [BMI] 36.0-36.9, adult
CPT/HCPCS: 36415; 36416; 80048; 80053; 80306; 80307; 81001; 83036; 83735; 84443; 85025; 93005; 93306; 96374; J2597; J3475; J3490; J7070

== ENCOUNTER 2023-01-31 16:49 | Inpatient (IN) | payer OTHER, MEDICAID ==
[2023-01-31 17:32] LABS: #Eosinphils 0.1 thou/uL (0.0-0.7); #Monocytes 1.5 thou/uL (0.11-0.59); %Basophils 0.2 % (0.0-1.0); %Eosinophils 0.4 % (0.0-10.0); %Lymphocytes 20.8 % (21.0-51.0); %Monocytes 10.9 % (0.0-10.0); %Neutrophils 67.3 % (42.0-75.0); Hematocrit 35.7 % (42.0-52.0); Hemoglobin 13.1 g/dL (14.0-18.0); Mean Corpuscular HGB CONC 36.7 g/dL (32.0-36.0); Mean Corpuscular Hemoglobin 30.6 pg (27.0-31.0); Mean Corpuscular Volume 83.4 fl (78.0-98.0); Mean Platelet Volume 8.9 fL (7.4-10.4); Platelet Count 221 10x3/uL (130-400); RBC Distribution Width 11.8 % (11.5-14.5); Red Blood Cell (RBC) Count 4.28 mill/uL (4.70-6.10); White Blood Cell (WBC) Count 13.4 10x3/uL (4.8-10.8)
[2023-01-31 17:44] LABS: Bilirubin Negative (Negative); Blood, Urine Negative (Negative); Glucose, Urine (Dipstick) Negative (Negative); Ketone, Urine Trace mg/dL (Negative); Leukocyte Negative (Negative); Nitrite Negative (Negative); Protein, Urine (Dipstick) Negative (Neg-Trace); Urobilinogen 0.2 mg/dL (Less than 2); pH, Urine 6.5 (5.0-9.0)
[2023-01-31 17:46] LABS: Clarity Clear (Clear); Specific Gravity, Urine 1.001 (1.002-1.036)
[2023-01-31 17:49] LABS: ALT (SGPT) 34 U/L (8-55); AST (SGOT) 41 U/L (5-34); Albumin 4.8 g/dL (3.5-5.0); Alkaline Phosphatase 54 U/L (40-110); Anion Gap 17 mmol/L (10-20); BUN (Urea Nitrogen) 5 mg/dL (8.9-20.6); Bilirubin, Total 0.7 mg/dL (0.2-1.2); Calc. Creatinine Clearance 0 mL/min (70-130); Calcium 8.7 mg/dL (7.8-10.44); Carbon Dioxide 16 mmol/L (22-29); Chloride 88 mmol/L (98-107); Estimated GFR 113; Globulin 2.2 g/dL (2.4-3.5); Glucose 88 mg/dL (70-105); Magnesium 1.3 mg/dL (1.6-2.6); Phosphorus 1.7 mg/dL (2.3-4.7); Potassium 3.2 mmol/L (3.5-5.1)
[2023-01-31 17:52] LABS: Troponin I Less than 0.010 ng/mL (< 0.028)
[2023-01-31 17:55] LABS: Sodium 118 mmol/L (136-145)
[2023-01-31 18:17] LABS: Bacteria/HPF None Seen HPF (None Seen); CAUTI Indications for Culture Dysuria,urgency,freq; RBC/HPF None Seen HPF (0-3); Squamous Epithelial None Seen HPF (0-3); WBC/HPF None Seen HPF (0-3)
[2023-01-31 18:19] LABS: Urine Culture Reflex No No
[2023-01-31] MEDS ORDERED: Magnesium 2 GM/50 ML BAG (IN WATER) ONE (18:57)
[2023-01-31] MEDS ORDERED: Potassium Chloride 20 MEQ TAB ONE (18:57)
[2023-01-31] MEDS ORDERED: Acetaminophen 325 MG TAB PO PRN (19:05)
[2023-01-31] MEDS ORDERED: Ondansetron ODT 4 MG TAB PO PRN (19:05)
[2023-01-31] MEDS ORDERED: Acetaminophen 650 MG Suppository PR PRN (19:05)
[2023-01-31] MEDS ORDERED: Ondansetron PF 4 MG/2 ML Vial IVP PRN (19:05)
[2023-01-31] MEDS ORDERED: Electrolyte Replacement Protocol 1 EACH FS SCH (19:15)
[2023-01-31] MEDS ORDERED: clonazePAM 0.5 MG TAB PO PRN (20:09)
[2023-01-31] MEDS ORDERED: Magnesium 2 GM/50 ML(in water) 2 GM in Premix Bag 1 BAG IVPB SCH (21:00)
[2023-01-31 21:36] LABS: Anion Gap 16 mmol/L (10-20); BUN (Urea Nitrogen) 4 mg/dL (8.9-20.6); Calc. Creatinine Clearance 0 mL/min (70-130); Calcium 8.9 mg/dL (7.8-10.44); Carbon Dioxide 17 mmol/L (22-29); Chloride 94 mmol/L (98-107); Estimated GFR 115; Glucose 80 mg/dL (70-105); Potassium 3.1 mmol/L (3.5-5.1); Sodium 124 mmol/L (136-145)
[2023-01-31] MEDS: PHOS-NAK 1 PKT PACK PO SCH (21:57)
[2023-01-31] MEDS ORDERED: Dextrose 5% in Water 1,000 ML IV SCH (22:30)
[2023-01-31 22:48] LABS: Anion Gap 14 mmol/L (10-20); BUN (Urea Nitrogen) 4 mg/dL (8.9-20.6); Calc. Creatinine Clearance 0 mL/min (70-130); Carbon Dioxide 20 mmol/L (22-29); Chloride 96 mmol/L (98-107); Estimated GFR 116; Glucose 77 mg/dL (70-105); Potassium 3.5 mmol/L (3.5-5.1); Sodium 126 mmol/L (136-145)
[2023-01-31 23:56] VITALS: BMI 37.7
[2023-02-01] MEDS ORDERED: Desmopressin 4 mcg/ml MDV 10ml Vial IVP SCH (02:55)
[2023-02-01] MEDS ORDERED: DEXTROSE 5% IV SCH (03:00)
[2023-02-01] MEDS ORDERED: WATER IV SCH (03:00)
[2023-02-01 04:10] LABS: Anion Gap 15 mmol/L (10-20); BUN (Urea Nitrogen) 4 mg/dL (8.9-20.6); Calc. Creatinine Clearance 178 mL/min (70-130); Calcium 8.9 mg/dL (7.8-10.44); Carbon Dioxide 19 mmol/L (22-29); Chloride 102 mmol/L (98-107); Estimated GFR 111; Glucose 90 mg/dL (70-105); Potassium 3.9 mmol/L (3.5-5.1); Sodium 132 mmol/L (136-145)
[2023-02-01 04:21] LABS: #Eosinphils 0.1 thou/uL (0.0-0.7); #Monocytes 1.1 thou/uL (0.11-0.59); #Neutrophils 3.6 thou/uL (1.40-6.50); %Basophils 0.1 % (0.0-1.0); %Eosinophils 0.9 % (0.0-10.0); %Lymphocytes 29.3 % (21.0-51.0); %Monocytes 16.3 % (0.0-10.0); %Neutrophils 53.3 % (42.0-75.0); Hematocrit 37.5 % (42.0-52.0); Hemoglobin 13.6 g/dL (14.0-18.0); Mean Corpuscular HGB CONC 36.3 g/dL (32.0-36.0); Mean Corpuscular Hemoglobin 30.3 pg (27.0-31.0); Mean Corpuscular Volume 83.5 fl (78.0-98.0); Mean Platelet Volume 9.2 fL (7.4-10.4); Platelet Count 229 10x3/uL (130-400); RBC Distribution Width 11.9 % (11.5-14.5); Red Blood Cell (RBC) Count 4.49 mill/uL (4.70-6.10); White Blood Cell (WBC) Count 6.8 10x3/uL (4.8-10.8)
[2023-02-01] MEDS ORDERED: Dextrose 5% in Water 1,000 ML IV SCH (04:30)
[2023-02-01] MEDS: PHOS-NAK 1 PKT PACK PO SCH ×2 (04:37→07:00)
[2023-02-01 07:09] LABS: Magnesium 2.4 mg/dL (1.6-2.6); Phosphorus 2.9 mg/dL (2.3-4.7)
[2023-02-01 08:58] LABS: Anion Gap 13 mmol/L (10-20); BUN (Urea Nitrogen) 4 mg/dL (8.9-20.6); Calc. Creatinine Clearance 174 mL/min (70-130); Carbon Dioxide 19 mmol/L (22-29); Chloride 102 mmol/L (98-107); Estimated GFR 112; Glucose 88 mg/dL (70-105); Potassium 3.9 mmol/L (3.5-5.1); Sodium 130 mmol/L (136-145)
[2023-02-01 09:05] LABS: Anion Gap 14 mmol/L (10-20); BUN (Urea Nitrogen) 4 mg/dL (8.9-20.6); Calc. Creatinine Clearance 176 mL/min (70-130); Calcium 9.2 mg/dL (7.8-10.44); Carbon Dioxide 20 mmol/L (22-29); Chloride 101 mmol/L (98-107); Estimated GFR 112; Glucose 102 mg/dL (70-105); Sodium 131 mmol/L (136-145)
[2023-02-01] MEDS ORDERED: Dextrose 50% Abboject 50 ML SYRINGE SLOW IVP PRN (10:28)
[2023-02-01] MEDS ORDERED: Glucagon 1 MG/ML KIT IM PRN (10:28)
[2023-02-01] MEDS ORDERED: Dextrose 5% in Water 1,000 ML IV PRN (10:28)
[2023-02-01] MEDS ORDERED: HumaLOG 300 UNITS/3 ML VIAL SC PRN (10:28)
[2023-02-01 13:24] LABS: Anion Gap 14 mmol/L (10-20); BUN (Urea Nitrogen) 5 mg/dL (8.9-20.6); Calc. Creatinine Clearance 142 mL/min (70-130); Calcium 9.5 mg/dL (7.8-10.44); Carbon Dioxide 20 mmol/L (22-29); Chloride 102 mmol/L (98-107); Estimated GFR 94; Glucose 116 mg/dL (70-105); Potassium 4.1 mmol/L (3.5-5.1); Sodium 132 mmol/L (136-145)
[2023-02-01 17:27] LABS: Anion Gap 14 mmol/L (10-20); BUN (Urea Nitrogen) 7 mg/dL (8.9-20.6); Calc. Creatinine Clearance 152 mL/min (70-130); Calcium 9.1 mg/dL (7.8-10.44); Carbon Dioxide 20 mmol/L (22-29); Chloride 102 mmol/L (98-107); Estimated GFR 102; Glucose 98 mg/dL (70-105); Potassium 3.8 mmol/L (3.5-5.1); Sodium 132 mmol/L (136-145)
[2023-02-01 21:24] LABS: Anion Gap 11 mmol/L (10-20); BUN (Urea Nitrogen) 8 mg/dL (8.9-20.6); Calc. Creatinine Clearance 174 mL/min (70-130); Calcium 8.9 mg/dL (7.8-10.44); Carbon Dioxide 21 mmol/L (22-29); Chloride 102 mmol/L (98-107); Estimated GFR 112; Glucose 100 mg/dL (70-105); Potassium 3.9 mmol/L (3.5-5.1); Sodium 130 mmol/L (136-145)
[2023-02-02 03:38] VITALS: TEMP 97.8
[2023-02-02 10:47] LABS: Anion Gap 12 mmol/L (10-20); BUN (Urea Nitrogen) 8 mg/dL (8.9-20.6); Calc. Creatinine Clearance 170 mL/min (70-130); Calcium 9.8 mg/dL (7.8-10.44); Carbon Dioxide 20 mmol/L (22-29); Chloride 106 mmol/L (98-107); Estimated GFR 111; Glucose 107 mg/dL (70-105); Potassium 4.4 mmol/L (3.5-5.1); Sodium 134 mmol/L (136-145)
[2023-02-04] MEDS ORDERED: FLU VACC QS2023-24(6MOS UP)/PF 60 MCG/0.5 ML SYRINGE IM ONE (09:00)
== END 2023-02-02 15:45 | disposition home or self-care (01) | DRG 641 ==
LOC: ERS 16:49 → IMCU/EMU 18:42
PROVIDERS: ADMIT Student in an Organized Health Care Education/Training Program; ATTEND Internal Medicine
DX: E87.1 Hypo-osmolality and hyponatremia (principal); R63.1 Polydipsia; F31.9 Bipolar disorder, unspecified; E78.5 Hyperlipidemia, unspecified; G47.33 Obstructive sleep apnea (adult) (pediatric); I12.9 Hypertensive chronic kidney disease with stage 1 through stage 4 chronic kidney disease, or unspecified chronic kidney disease; N18.1 Chronic kidney disease, stage 1; R41.0 Disorientation, unspecified; E87.6 Hypokalemia; E83.42 Hypomagnesemia; E83.39 Other disorders of phosphorus metabolism; D72.829 Elevated white blood cell count, unspecified; D64.9 Anemia, unspecified; E66.9 Obesity, unspecified; R60.9 Edema, unspecified; Z98.890 Other specified postprocedural states; Z79.899 Other long term (current) drug therapy; Z68.35 Body mass index [BMI] 35.0-35.9, adult
CPT/HCPCS: 36415; 36416; 80048; 80053; 81001; 82010; 83735; 83935; 84100; 84300; 84484; 85025; 96365; J1815; J2597; J3475; J7070